=== PATIENT | female | born 1995 | race Caucasian/White ===

== ENCOUNTER 2017-01-10 17:47 | Emergency (ER) | payer OTHER ==
[2015-07-02 06:09] VITALS: BP 121/80
[~2017-01-10 17:47] MED LIST: ACET50TA PO; IBUP1TAB7 PO; VITAPRTA PO
== END 2017-01-10 18:31 | disposition left against medical advice (07) ==
LOC: M ED 17:47
DX: R68.89 Other general symptoms and signs (principal); Z53.29 Procedure and treatment not carried out because of patient's decision for other reasons

== ENCOUNTER → 2017-01-23 | Outpatient (REF) | payer OTHER | LOC: M LAB REF 09:27 | PROVIDERS: ATTEND Physician Assistant | DX: R30.0 Dysuria (principal) ==

== ENCOUNTER → 2017-02-25 | Outpatient (REF) | payer OTHER ==
[2017-02-25 16:32] LABS: BASO # 0.1 10^3/uL (0.0-0.2); BASO % 0.8 % (0.0-1.0); EOS # 0.4 10^3/uL (0.0-0.50); IMMATURE GRANULOCYTE % 0.1 % (0-0); LYMPH # 2.8 10^3/uL (1.5-6.5); LYMPH % 30.9 % (24.0-44.0); MEAN CORPUSCULAR HEMOGLOBIN 30.4 pg (27.0-33.0); MEAN CORPUSCULAR HGB CONC 33.3 g/dl (32.0-36.5); MEAN CORPUSCULAR VOLUME 91.2 fl (80.0-96.0); MONO # 0.7 10^3/uL (0.0-0.8); MONO % 7.8 % (0.0-5.0); NEUTROPHILS # 5.1 10^3/uL (1.8-7.7); NEUTROPHILS % 56.4 % (36.0-66.0); PLATELET COUNT, AUTOMATED 301 10^3/uL (150-450); RED CELL DISTRIBUTION WIDTH 12.5 % (11.5-14.5)
[2017-02-25 16:52] LABS: ALBUMIN 3.9 GM/DL (3.2-5.2); ALBUMIN/GLOBULIN RATIO 1.22 (1.00-1.93); ALKALINE PHOSPHATASE 79 U/L (45-117); ALT/SGPT 18 U/L (12-78); ANION GAP 10 MEQ/L (8-16); AST/SGOT 12 U/L (15-37); BILIRUBIN,TOTAL 0.3 MG/DL (0.2-1.0); BLOOD UREA NITROGEN 11 MG/DL (7-18); CALCIUM LEVEL 9.1 MG/DL (8.5-10.1); CARBON DIOXIDE LEVEL 26 MEQ/L (21-32); CHLORIDE LEVEL 104 MEQ/L (98-107); CHOLESTEROL LEVEL 157 MG/DL (<200); CREATININE FOR GFR 0.78 MG/DL (0.55-1.02); FREE T4 1.05 NG/DL (0.76-1.46); GLOMERULAR FILTRATION RATE > 60.0 (>60); POTASSIUM SERUM 4.7 MEQ/L (3.5-5.1); SODIUM LEVEL 140 MEQ/L (136-145); TOTAL PROTEIN 7.1 GM/DL (6.4-8.2); TRIGLYCERIDES LEVEL 63 MG/DL (<150)
[2017-03-01 09:04] LABS: GLUCOSE, FASTING 78 MG/DL (70-105); WHITE BLOOD COUNT 9.1 10^3/uL (4.0-10.0)
== END ==
LOC: M SFHCSACK 18:52 → M LAB REF 18:52
PROVIDERS: ATTEND Physician Assistant
DX: J30.9 Allergic rhinitis, unspecified (principal); Z13.220 Encounter for screening for lipoid disorders; E04.9 Nontoxic goiter, unspecified; Z13.21 Encounter for screening for nutritional disorder

== ENCOUNTER → 2017-06-29 | Outpatient (REF) | payer OTHER | LOC: M LAB REF 10:39 | DX: J11.1 Influenza due to unidentified influenza virus with other respiratory manifestations (principal) ==

== ENCOUNTER 2017-07-30 23:56 | Emergency (ER) | payer MEDICAID, OTHER ==
[2017-07-31] MEDS: IBUPROFEN 800 MG TAB PO ×2 (01:18)
== END 2017-07-31 01:41 | disposition home or self-care (01) ==
LOC: M ED 23:56
DX: S93.602A Unspecified sprain of left foot, initial encounter (principal); W01.0XXA Fall on same level from slipping, tripping and stumbling without subsequent striking against object, initial encounter; Y92.018 Other place in single-family (private) house as the place of occurrence of the external cause; Z88.0 Allergy status to penicillin
CPT/HCPCS: 73630

== ENCOUNTER → 2017-11-30 | Outpatient (REF) | payer OTHER ==
[2017-11-30 15:36] LABS: CONTROL LINE HCG INT CTR LINE PRESENT; HCG, SERUM QUALITATIVE NEGATIVE (NEGATIVE)
== END ==
LOC: M SFHCSACK 11:30
DX: R10.2 Pelvic and perineal pain (principal)

== ENCOUNTER → 2018-02-06 | Outpatient (REF) | payer OTHER | LOC: M SFHCSACK 15:22 | DX: J02.9 Acute pharyngitis, unspecified (principal) ==

== ENCOUNTER → 2018-02-20 | Outpatient (REF) | payer OTHER | LOC: M LAB REF 12:57 | DX: J02.9 Acute pharyngitis, unspecified (principal) ==

== ENCOUNTER → 2018-02-24 | Outpatient (CLI) | payer OTHER ==
[2018-02-24 11:07] LABS: BASO % 0.5 % (0.0-1.0); EOS # 0.1 10^3/uL (0.0-0.50); EOS % 1.6 % (0.0-3.0); HEMATOCRIT 37.2 % (36.0-47.0); HEMOGLOBIN 12.8 g/dl (12.0-15.5); IMMATURE GRANULOCYTE % 0.3 % (0-3.0); LYMPH # 1.5 10^3/uL (1.5-6.5); LYMPH % 17.4 % (24.0-44.0); MEAN CORPUSCULAR HEMOGLOBIN 31.1 pg (27.0-33.0); MEAN CORPUSCULAR HGB CONC 34.4 g/dl (32.0-36.5); MEAN CORPUSCULAR VOLUME 90.3 fl (80.0-96.0); MONO # 0.5 10^3/uL (0.0-0.8); MONO % 5.5 % (0.0-5.0); NEUTROPHILS # 6.5 10^3/uL (1.8-7.7); NEUTROPHILS % 74.7 % (36.0-66.0); PLATELET COUNT, AUTOMATED 307 10^3/uL (150-450); RED BLOOD COUNT 4.12 10^6/uL (4.00-5.40); RED CELL DISTRIBUTION WIDTH 12.6 % (11.5-14.5); WHITE BLOOD COUNT 8.8 10^3/uL (4.0-10.0)
[2018-02-24 11:39] LABS: ESTIMATED AVERAGE GLUCOSE 97 MG/DL (60-110)
[2018-02-24 12:38] LABS: FREE T4 1.08 NG/DL (0.76-1.46); GLUCOSE CHALLENGE TEST 1 HOUR 81 MG/DL (LESS THAN 140)
[2018-02-24 13:13] LABS: RUBELLA IgG QUALITATIVE IMMUNE (IMMUNE)
[2018-02-24 13:14] LABS: HBsAg Prenatal NEGATIVE (NEGATIVE)
[2018-02-24 13:41] LABS: HEPATITIS C VIRUS ABY INDEX < 0.0 INDEX (<0.8)
[2018-02-24 13:42] LABS: HIV 1&2 SCREEN CENTAUR NEGATIVE (NEGATIVE)
[2018-02-24 14:44] LABS: CHLAMYDIA DNA AMPLIFICATION NEGATIVE (NEGATIVE); GC DNA AMPLIFICATION NEGATIVE (NEGATIVE)
== END ==
LOC: M LAB 10:10
DX: Z34.81 Encounter for supervision of other normal pregnancy, first trimester (principal); Z3A.00 Weeks of gestation of pregnancy not specified
CPT/HCPCS: 82950

== ENCOUNTER → 2018-03-06 | Outpatient (REF) | payer OTHER | LOC: M SFHCSACK 11:16 | DX: J02.9 Acute pharyngitis, unspecified (principal) ==

== ENCOUNTER 2018-04-12 15:14 | Emergency (ER) | payer OTHER ==
[2018-04-12] MEDS: ACETAMINOPHEN 325 MG TAB PO (15:45)
[2018-04-12 16:15] LABS: KETONE, URINE AUTO RFX 1+ mg/dL (NEGATIVE); MUCUS, URINE RFX SMALL (NEGATIVE); NITRITE, URINE AUTO RFX NEGATIVE (NEGATIVE); RBC, URINE AUTO RFX 2 /HPF (0-3); SPECIFIC GRAVITY UR AUTO RFX 1.009 (1.002-1.035); SQUAM EPITHELIAL CELL UR AURFX 3 /HPF (0-6); WBC, URINE AUTO RFX 2 /HPF (0-3)
[2018-04-12 16:18] LABS: LEUKOCYTE ESTERASE UR AUTO RFX 1+ (NEGATIVE)
== END 2018-04-12 17:03 | disposition home or self-care (01) ==
LOC: M ED 15:14
DX: O26.892 Other specified pregnancy related conditions, second trimester (principal); R82.71 Bacteriuria; R10.31 Right lower quadrant pain; O9A.212 Injury, poisoning and certain other consequences of external causes complicating pregnancy, second trimester; R29.6 Repeated falls; Z87.891 Personal history of nicotine dependence; Z88.0 Allergy status to penicillin; Z3A.15 15 weeks gestation of pregnancy
CPT/HCPCS: 93976

== ENCOUNTER → 2018-05-03 | Outpatient (CLI) | payer OTHER ==
[~2018-05-03] MED LIST changes: -ACET50TA PO; +MACR100C43 PO; +MAPA500T17 PO
--- NOTE | 2018-05-03 17:37 | REP ---
Clinical: Anatomical evaluation. Comparison: 04/12/2018 . Findings: Examination demonstrates a single live intrauterine in transverse (head to maternal left) presentation. motion is identified by technologist. Placenta is noted anterior and grade zero without evidence for placenta previa or abruption. Amniotic fluid volume is normal. Cervix measures 3.9 cm in length and appears closed. Nuchal cord cannot be excluded. Gestational age by LMP 18 weeks 2 days LONG 10/02/2018 . Gestational age by current measurements 18 weeks 2 days with LONG 10/02/2018 . Normal cardiac activity noted by technologist. Estimated weight 234 grams ( 49th percentile). Anatomical assessment demonstrates normal structures including cranium, choroid plexus, cavum, cerebellum/posterior fossa, lungs, diaphragm, stomach, cord insertion/three-vessel cord, bladder, and extremities. Impression: Single live intrauterine in transverse lie demonstrating appropriate interval growth. Limited evaluation of the facial features, heart/ventricular outflow tracts, kidneys and spine noted. Remainder of the anatomical assessment is complete and normal. Nuchal cord cannot be excluded. Electronically Signed by Domingo Felix MD 05/03/2018 05:28 P
== END ==
LOC: M LAB 14:00
PROVIDERS: ATTEND Obstetrics & Gynecology
DX: Z34.82 Encounter for supervision of other normal pregnancy, second trimester (principal); Z3A.18 18 weeks gestation of pregnancy

== ENCOUNTER → 2018-06-01 | Outpatient (CLI) | payer OTHER ==
[~2018-06-01] MED LIST changes: -MAPA500T17 PO; +MAPA500T2 PO
--- NOTE | 2018-06-02 03:13 | REP ---
Clinical: Anatomical evaluation. Comparison: 05/03/2018 . Findings: Examination demonstrates a single live intrauterine in cephalic presentation. motion is identified by technologist. Placenta is noted anterior and grade grade zero without evidence for placenta previa or abruption. Amniotic fluid volume is normal. Cervix measures 4.6 cm in length and appears closed. No evidence for nuchal cord. Gestational age by LMP 22 weeks 3 days with LONG 10/02/1989 . Gestational age by current measurements 22 weeks 5 days with LONG 09/30/2018 . FHR equals 155 beats per minute. Estimated weight 565 grams ( 69th percentile). Anatomical assessment demonstrates normal structures including cranium, choroid plexus, cavum, cerebellum/posterior fossa, facial features, lungs, four-chamber heart/ventricular outflow tracts, diaphragm, stomach, cord insertion/three-vessel cord, kidneys/bladder, spine, and extremities. Impression: Single live intrauterine in cephalic presentation demonstrating appropriate interval growth. Anatomical assessment is complete and normal. No gross abnormalities are identified. Electronically Signed by Domingo Felix MD 06/02/2018 03:05 A
== END ==
LOC: M RAD 13:33
PROVIDERS: ATTEND Advanced Practice Midwife
DX: Z34.82 Encounter for supervision of other normal pregnancy, second trimester (principal); Z36.89 Encounter for other specified antenatal screening; Z3A.22 22 weeks gestation of pregnancy

== ENCOUNTER → 2018-07-11 | Outpatient (CLI) | payer OTHER ==
[2018-07-11 11:52] LABS: HEMATOCRIT 31.4 % (36.0-47.0); HEMOGLOBIN 10.5 g/dl (12.0-15.5); MEAN CORPUSCULAR HEMOGLOBIN 30.8 pg (27.0-33.0); MEAN CORPUSCULAR HGB CONC 33.4 g/dl (32.0-36.5); MEAN CORPUSCULAR VOLUME 92.1 fl (80.0-96.0); PLATELET COUNT, AUTOMATED 356 10^3/uL (150-450); RED BLOOD COUNT 3.41 10^6/uL (4.00-5.40)
== END ==
LOC: M LAB 09:53
PROVIDERS: ATTEND Obstetrics & Gynecology
DX: Z34.82 Encounter for supervision of other normal pregnancy, second trimester (principal)

== ENCOUNTER 2018-08-07 17:22 | Emergency (ER) | payer OTHER ==
[~2018-08-07] VITALS: Ht 160 cm; Wt 80.9 kg
[2018-08-07] MEDS ORDERED: VENTAER (17:28)
[2018-08-07] MEDS ORDERED: PROM25TA12 (17:28)
[2018-08-07] MEDS ORDERED: NS 1,000 ML IV ONE (18:45)
[2018-08-07] MEDS ORDERED: ONDANSETRON 4MG/2ML VIAL (J2405) IV ONE (18:45)
[2018-08-07] MEDS ORDERED: METOCLOPRAMIDE INJ 10MG/2ML VIAL (J2765) IV ONE (18:45)
[2018-08-07 19:24] LABS: BASO # 0.1 10^3/uL (0.0-0.2); BASO % 0.3 % (0.0-1.0); EOS # 0.1 10^3/uL (0.0-0.50); EOS % 0.3 % (0.0-3.0); HEMATOCRIT 33.4 % (36.0-47.0); HEMOGLOBIN 11.1 g/dl (12.0-15.5); LYMPH % 5.2 % (24.0-44.0); MEAN CORPUSCULAR HEMOGLOBIN 30.7 pg (27.0-33.0); MEAN CORPUSCULAR HGB CONC 33.2 g/dl (32.0-36.5); MEAN CORPUSCULAR VOLUME 92.5 fl (80.0-96.0); MONO # 0.7 10^3/uL (0.0-0.8); MONO % 3.7 % (0.0-5.0); NEUTROPHILS # 17.7 10^3/uL (1.8-7.7); NEUTROPHILS % 89.3 % (36.0-66.0); PLATELET COUNT, AUTOMATED 350 10^3/uL (150-450); RED BLOOD COUNT 3.61 10^6/uL (4.00-5.40); WHITE BLOOD COUNT 19.8 10^3/uL (4.0-10.0)
[2018-08-07 19:46] LABS: ALBUMIN 2.9 GM/DL (3.2-5.2); ALT/SGPT 10 U/L (12-78); BILIRUBIN,DIRECT < 0.1 MG/DL (0.0-0.2); BILIRUBIN,TOTAL 0.4 MG/DL (0.2-1.0); BLOOD UREA NITROGEN 6 MG/DL (7-18); CALCIUM LEVEL 8.9 MG/DL (8.5-10.1); CARBON DIOXIDE LEVEL 21 MEQ/L (21-32); CHLORIDE LEVEL 106 MEQ/L (98-107); CREATININE FOR GFR 0.58 MG/DL (0.55-1.30); GLOMERULAR FILTRATION RATE > 60.0 (>60); GLUCOSE, FASTING 70 MG/DL (70-100); LIPASE 126 U/L (73-393); POTASSIUM SERUM 3.7 MEQ/L (3.5-5.1); SODIUM LEVEL 138 MEQ/L (136-145)
[2018-08-07 20:27] VITALS: BP 116/63
== END 2018-08-07 20:47 | disposition home or self-care (01) ==
LOC: M ED 17:22
DX: O21.2 Late vomiting of pregnancy (principal); O99.613 Diseases of the digestive system complicating pregnancy, third trimester; R19.7 Diarrhea, unspecified; Z3A.32 32 weeks gestation of pregnancy; Z88.0 Allergy status to penicillin; Z79.899 Other long term (current) drug therapy
CPT/HCPCS: 80048; 80076; 83690; 85025; 96374; 96375; 99284; J2405; J2765

== ENCOUNTER → 2018-09-05 | Outpatient (REF) | payer OTHER ==
[~2018-09-05] MED LIST changes: +PROM25TA12; +VENTAER
== END ==
LOC: M LAB REF 18:32
PROVIDERS: ATTEND Advanced Practice Midwife
DX: Z34.83 Encounter for supervision of other normal pregnancy, third trimester (principal)

== ENCOUNTER → 2018-09-06 | Outpatient (REF) | payer OTHER | LOC: M LAB REF 12:50 | PROVIDERS: ATTEND Physician Assistant | DX: J02.9 Acute pharyngitis, unspecified (principal) ==

== ENCOUNTER → 2018-09-07 | Outpatient (REF) | payer OTHER ==
[2018-09-07 11:36] LABS: INFLUENZA A AMPLIFICATION POSITIVE (NEGATIVE); INFLUENZA B AMPLIFICATION NEGATIVE (NEGATIVE)
== END ==
LOC: M LAB REF 10:45
PROVIDERS: ATTEND Obstetrics & Gynecology
DX: R50.9 Fever, unspecified (principal); R05 Cough

== ENCOUNTER → 2018-09-19 | Outpatient (REF) | payer OTHER ==
[~2018-09-19] MED LIST changes: +TYLENOL PO
[2018-09-19 16:52] LABS: CREATININE,RANDOM URINE 20.1 MG/DL; TOTAL PROTEIN,RANDOM URINE 5.6 MG/DL (0.0-12.0)
[2018-09-19 16:56] LABS: HEMATOCRIT 31.1 % (36.0-47.0); HEMOGLOBIN 9.8 g/dl (12.0-15.5); MEAN CORPUSCULAR HEMOGLOBIN 28.2 pg (27.0-33.0); MEAN CORPUSCULAR HGB CONC 31.5 g/dl (32.0-36.5); MEAN CORPUSCULAR VOLUME 89.6 fl (80.0-96.0); PLATELET COUNT, AUTOMATED 364 10^3/uL (150-450); RED BLOOD COUNT 3.47 10^6/uL (4.00-5.40); WHITE BLOOD COUNT 14.7 10^3/uL (4.0-10.0)
[2018-09-19 17:01] LABS: ALT/SGPT 10 U/L (12-78); BILIRUBIN,TOTAL 0.3 MG/DL (0.2-1.0); CREATININE FOR GFR 0.59 MG/DL (0.55-1.30); GLOMERULAR FILTRATION RATE > 60.0 (>60); LDH LACTATE DEHYDROGENASE 191 U/L (84-246); URIC ACID 4.3 MG/DL (2.6-6.0)
== END ==
LOC: M LABDRAW1 12:01
PROVIDERS: ATTEND Advanced Practice Midwife
DX: O12.03 Gestational edema, third trimester (principal)

== ENCOUNTER 2018-09-20 16:55 | Inpatient (IN) | payer OTHER ==
[~2018-09-20] VITALS: Ht 160 cm; Wt 83.8 kg
[2018-09-20] VITALS (11 sets, daily range): BP systolic 133–143; BP diastolic 64–82
[~2018-09-20 16:55] MED LIST changes: -TYLENOL PO
[2018-09-20] MEDS ORDERED: TYLENOL PO (17:13)
[2018-09-20] MEDS: miSOPROStol 50 MCG 1/2 TAB (S0191) PO SCH ×2 (19:32→23:41)
[2018-09-20 19:48] LABS: HEMATOCRIT 30.4 % (36.0-47.0); HEMOGLOBIN 9.9 g/dl (12.0-15.5); MEAN CORPUSCULAR HEMOGLOBIN 29.3 pg (27.0-33.0); MEAN CORPUSCULAR HGB CONC 32.6 g/dl (32.0-36.5); MEAN CORPUSCULAR VOLUME 89.9 fl (80.0-96.0); PLATELET COUNT, AUTOMATED 361 10^3/uL (150-450); RED BLOOD COUNT 3.38 10^6/uL (4.00-5.40); WHITE BLOOD COUNT 17.8 10^3/uL (4.0-10.0)
[2018-09-20 19:55] LABS: ALT/SGPT 8 U/L (12-78); BILIRUBIN,TOTAL 0.3 MG/DL (0.2-1.0); GLOMERULAR FILTRATION RATE > 60.0 (>60); LDH LACTATE DEHYDROGENASE 200 U/L (84-246)
--- NOTE | 2018-09-20 21:58 | HPE ---
DATE OF ADMISSION: 09/20/2018 Matilda is a 23-year-old 3, para 1-0-1-1, 38 weeks gestation, EDC of 10/04/2018 based on last menstrual period and confirmed by first trimester ultrasound. She presents to labor and delivery today following routine appointment noted to have elevated blood pressure. She did have pre-eclamptic labs and a spot urine drawn yesterday. She denies any regular contractions, vaginal bleeding or leakage of fluid. The fetus has been active. She does report a slight headache that has improved throughout the day. Her care was initiated at [facility] in the first trimester. course complicated by today's diagnosis of gestational hypertension. PAST MEDICAL HISTORY: Childhood varicella asthma, seasonal allergies. SURGERIES: None. FAMILY HISTORY: Diabetes, heart disease, kidney disease, depression, anxiety, liver failure, thyroid dysfunction. SOCIAL HISTORY: The patient is single however the father of the baby is at bedside and supportive. She is a smoker. She has smoked throughout her . She denies alcohol and drug use. Denies history of sexually transmitted infections and denies history of abuse physical, sexual and emotional. ALLERGIES: AMOXICILLIN. CURRENT MEDICATIONS: - Zyrtec 10 mg - vitamin D - vitamins OBJECTIVE: Temperature 99.3, pulse 116, respirations 20, blood pressure is 143/82. She is alert and oriented times three, in no apparent discomfort. heart rate is 135 with moderate variability, positive accelerations, negative decelerations. Contractions are irregular. Sterile vaginal exam: 1 cm dilated, 80% effaced, -2 station, very posterior, moderate texture, no show. Her abdomen is gravid, cephalic presentation. Estimated weight 3700 grams. ASSESSMENT: Intrauterine 38 weeks. heart rate category one. Gestational hypertension. PLAN: Admit the patient to labor and delivery. Routine labs. Out of bed ad clifford. Repeat pre-eclamptic profile. Regular diet at this time. The patient desires an epidural when she is in active labor. I did review risks, benefits and alternatives. The patient and her partner have had all their questions answered. She has been verbally consented for emergency surgery and blood products. She does desire induction of labor at this time. I do anticipate labor.
[2018-09-21] VITALS (49 sets, daily range): BP systolic 100–153; BP diastolic 51–94
[2018-09-21] MEDS ORDERED: CALCIUM CARBONATE 500 MG CHEW U/D PO PRN (03:30)
[2018-09-21] MEDS ORDERED: OXYTOCIN 30 UNITS IN 0.9% NaCl 500ML IV BAG (J2590) As Ordered ONE (03:41)
[2018-09-21] MEDS ORDERED: OXYTOCIN DRIP 30 UNITS in APPROPRIATE DILUENT 1 EA IV SCH (03:45)
[2018-09-21] MEDS: LR 1,000 ML IV SCH ×3 (07:50→17:00)
[2018-09-21] MEDS ORDERED: FENTANYL 2MCG/ML ROPIVACAINE 0.2% IN 0.9% NACL 100ML IVBAG As Ordered ONE (12:55)
[2018-09-21 13:06] LABS: HEMATOCRIT 30.4 % (36.0-47.0); HEMOGLOBIN 10.1 g/dl (12.0-15.5); MEAN CORPUSCULAR HEMOGLOBIN 29.9 pg (27.0-33.0); MEAN CORPUSCULAR HGB CONC 33.2 g/dl (32.0-36.5); MEAN CORPUSCULAR VOLUME 89.9 fl (80.0-96.0); PLATELET COUNT, AUTOMATED 353 10^3/uL (150-450); RED BLOOD COUNT 3.38 10^6/uL (4.00-5.40); WHITE BLOOD COUNT 22.7 10^3/uL (4.0-10.0)
[2018-09-21] MEDS ORDERED: LR 1,000 ML IV ONE (13:15)
[2018-09-21] MEDS ORDERED: NALOXONE INJ 0.4 MG/1 ML VIAL (J2310) IV PRN (14:00)
[2018-09-21] MEDS ORDERED: ONDANSETRON 4MG/2ML VIAL (J2405) IV PRN ×2 (14:00→18:00)
[2018-09-21] MEDS ORDERED: REFRIGERATOR IV KEYS XX PRN (14:00)
[2018-09-21] MEDS ORDERED: ePHEDrine SULFATE 25 MG/5 ML(5MG/ML) SYRINGE IV PRN (14:00)
[2018-09-21] MEDS ORDERED: LACTATED RINGER'S 1000 ML IV PRN (14:00)
[2018-09-21] MEDS ORDERED: EPIDURAL COMMENT XX SCH (14:00)
[2018-09-21] MEDS ORDERED: EPIDURAL/PCA KEYS XX PRN (14:00)
[2018-09-21] MEDS ORDERED: FENTANYL/ROPIVACAINE/NACL BAG 100 ML EPIDURAL SCH (14:00)
[2018-09-21] MEDS ORDERED: diphenhydrAMINE INJ 50MG/ML VIAL (J1200) IV PRN (14:00)
[2018-09-21] MEDS ORDERED: DIBUCAINE 1% OINTMENT 30GM TOP PRN (18:00)
[2018-09-21] MEDS ORDERED: MEASLES,MUMPS,RUBELLA VACCINE INJ (MMR-II) (90707) SC SCH (18:00)
[2018-09-21] MEDS ORDERED: METHYLERGONOVINE MALEATE 0.2 MG TAB PO PRN (18:00)
[2018-09-21] MEDS ORDERED: OXYTOCIN DRIP 30 UNITS in APPROPRIATE DILUENT 1 EA IV ONE (18:00)
[2018-09-21] MEDS ORDERED: RHOGAM 300 MCG (1500 IU) INJ (J2790) IM SCH (18:00)
[2018-09-21] MEDS ORDERED: SLF 3 ML SYR IV PRN (18:45)
[2018-09-21] MEDS: SLF 3 ML SYR IV SCH ×2 (18:50→22:00)
[2018-09-21] MEDS: DOCUSATE SODIUM 100 MG CAP PO PRN (22:24)
[2018-09-21] MEDS: IBUPROFEN 800 MG TAB PO PRN (22:24)
[2018-09-22 06:00] VITALS: BP 126/67
[2018-09-22] MEDS: IBUPROFEN 800 MG TAB PO PRN (06:09)
[2018-09-22] MEDS: SLF 3 ML SYR IV SCH (06:09)
--- NOTE | 2018-09-22 08:35 | DN ---
DATE OF DELIVERY: 09/21/2018 PREDELIVERY DIAGNOSIS: 38 weeks gestational hypertension. POST DELIVERY DIAGNOSIS: Delivered. PROCEDURE: Spontaneous vaginal delivery. DOOR MANAGER: Ricardo Garcia M.D. ANESTHESIA: Epidural. ESTIMATED BLOOD LOSS: 300 mL. FINDINGS: 6 pound 7 ounce female infant. scores 8 and 9. DELIVERY SUMMARY: After a 15 minute second stage, the patient had spontaneous delivery of a 6 pound 7 ounce female scores 8 and 9 under epidural anesthesia. There is no nuchal cord. The shoulders delivered with ease. The infant was handed to the mother and cried immediately. The cord is doubly clamped and cut. The placenta delivered spontaneously and appeared to be intact. Patient received IV pitocin immediately after delivery of the placenta. There were no vaginal lacerations present. Sponges counts were correct.
[2018-09-22] MEDS: PRENATAL VITAMINS CHEWABLE TABLET PO SCH (09:00)
[2018-09-22 18:09] VITALS: BP 132/71
[2018-09-22] MEDS: ACETAMINOPHEN 500 MG TAB PO PRN (20:28)
[2018-09-22] MEDS: DOCUSATE SODIUM 100 MG CAP PO PRN (20:28)
[2018-09-23] MEDS: ACETAMINOPHEN 500 MG TAB PO PRN (04:30)
[2018-09-23 06:00] VITALS: BP 142/78
[2018-09-23] MEDS: PRENATAL VITAMINS CHEWABLE TABLET PO SCH (08:35)
== END 2018-09-23 12:10 | disposition home or self-care (01) | DRG 560 ==
LOC: M LDI 16:55 → M OBS 09-21 20:16
PROVIDERS: ADMIT Advanced Practice Midwife; ATTEND Specialist
PROC: 3E033VJ Introduction of Other Hormone into Peripheral Vein, Percutaneous Approach (ICD-10-PCS; 2018-09-20)
PROC: 10E0XZZ Delivery of Products of Conception, External Approach (ICD-10-PCS; principal; 2018-09-21)
DX: O13.4 Gestational [pregnancy-induced] hypertension without significant proteinuria, complicating childbirth (principal); F17.210 Nicotine dependence, cigarettes, uncomplicated; Z3A.38 38 weeks gestation of pregnancy; O99.334 Smoking (tobacco) complicating childbirth; Z37.0 Single live birth

== ENCOUNTER 2019-07-17 10:26 | Emergency (ER) | payer MEDICAID, OTHER, SELFPAY ==
[~2019-07-17] VITALS: Ht 160 cm; Wt 74.0 kg
[~2019-07-17 10:26] MED LIST changes: +TYLENOL PO
[2019-07-17] MEDS ORDERED: LORA-674 (10:32)
[2019-07-17] MEDS ORDERED: ADDE15CA3 (10:32)
[2019-07-17] MEDS ORDERED: MONT10TA4 (10:32)
[2019-07-17] MEDS ORDERED: KETOROLAC TROMETHAMINE 10 MG TAB PO ONE (11:15)
[2019-07-17] MEDS ORDERED: ONDANSETRON 4 MG ORAL DISINTEGRATING TAB (Q0162 PER 1MG) PO ONE (11:15)
[2019-07-17 11:51] LABS: INFLUENZA A AMPLIFICATION NEGATIVE (NEGATIVE); INFLUENZA B AMPLIFICATION NEGATIVE (NEGATIVE)
[2019-07-17 12:19] VITALS: BP 132/84
[2019-07-17] MEDS ORDERED: ONDA4TAB6 PO (12:20)
[2019-07-17] MEDS ORDERED: KETO10TAB PO (12:20)
== END 2019-07-17 12:33 | disposition home or self-care (01) ==
LOC: M ED 10:26
DX: R51 Headache (principal); J06.9 Acute upper respiratory infection, unspecified; J45.909 Unspecified asthma, uncomplicated; Z88.0 Allergy status to penicillin; F17.210 Nicotine dependence, cigarettes, uncomplicated
CPT/HCPCS: 87502; 99283; Q0162

== ENCOUNTER → 2019-11-19 | Outpatient (REF) | payer OTHER ==
[~2019-11-19] MED LIST changes: +ADDE15CA3; +KETO10TAB PO; +LORA-674; +MONT10TA4; +ONDA4TAB6 PO
[2019-11-19 15:37] LABS: HEMATOCRIT 38.8 % (36.0-47.0); MEAN CORPUSCULAR HEMOGLOBIN 30.5 pg (27.0-33.0); MEAN CORPUSCULAR HGB CONC 33.5 g/dl (32.0-36.5); MEAN CORPUSCULAR VOLUME 91.1 fl (80.0-96.0); PLATELET COUNT, AUTOMATED 332 10^3/uL (150-450); RED BLOOD COUNT 4.26 10^6/uL (4.00-5.40); WHITE BLOOD COUNT 15.2 10^3/uL (4.0-10.0)
[2019-11-19 16:35] LABS: ALT/SGPT 15 U/L (12-78); BILIRUBIN,TOTAL 0.1 MG/DL (0.2-1.0); CREATININE FOR GFR 0.63 MG/DL (0.55-1.30); GLOMERULAR FILTRATION RATE > 60.0 (>60); LDH LACTATE DEHYDROGENASE 151 U/L (84-246); URIC ACID 3.5 MG/DL (2.6-6.0)
[2019-11-19 17:20] LABS: HIV 1&2 SCREEN CENTAUR NEGATIVE (NEGATIVE)
[2019-11-19 17:32] LABS: CHLAMYDIA DNA AMPLIFICATION NEGATIVE (NEGATIVE); GC DNA AMPLIFICATION NEGATIVE (NEGATIVE)
[2019-11-21 10:25] LABS: HEPATITIS C VIRUS ABY INDEX 0.1 INDEX (<0.8)
== END ==
LOC: M PLALAB 13:35
PROVIDERS: ATTEND Advanced Practice Midwife
DX: Z34.91 Encounter for supervision of normal pregnancy, unspecified, first trimester (principal)

== ENCOUNTER 2020-01-03 14:18 | Emergency (ER) | payer OTHER ==
[~2020-01-03] VITALS: Ht 160 cm; Wt 76.6 kg
[2020-01-03 16:21] LABS: BASO % 0.2 % (0.0-1.0); EOS # 0.4 10^3/uL (0.0-0.5); EOS % 2.6 % (0.0-3.0); HEMATOCRIT 39.1 % (36.0-47.0); HEMOGLOBIN 13.2 g/dl (12.0-15.5); LYMPH # 2.6 10^3/uL (1.5-5.0); LYMPH % 17.5 % (24.0-44.0); MEAN CORPUSCULAR HEMOGLOBIN 30.8 pg (27.0-33.0); MEAN CORPUSCULAR HGB CONC 33.8 g/dl (32.0-36.5); MEAN CORPUSCULAR VOLUME 91.4 fl (80.0-96.0); MONO # 0.9 10^3/uL (0.0-0.8); MONO % 5.9 % (0.0-5.0); NEUTROPHILS # 10.9 10^3/uL (1.5-8.5); NEUTROPHILS % 73.2 % (36.0-66.0); PLATELET COUNT, AUTOMATED 319 10^3/uL (150-450); RED BLOOD COUNT 4.28 10^6/uL (4.00-5.40)
[2020-01-03 16:27] LABS: APPEARANCE, URINE CLEAR (CLEAR); BACTERIA, URINE AUTO 1+ (NEGATIVE); BILIRUBIN, URINE AUTO NEGATIVE (NEGATIVE); BLOOD, URINE BLOOD NEGATIVE (NEGATIVE); COLOR, URINE YELLOW (YELLOW); GLUCOSE, URINE (UA) AUTO NEGATIVE (NEGATIVE); KETONE, URINE AUTO 1+ mg/dL (NEGATIVE); LEUKOCYTE ESTERASE, URINE AUTO NEGATIVE (NEGATIVE); MUCUS, URINE SMALL (NEGATIVE); NITRITE, URINE AUTO NEGATIVE (NEGATIVE); PROTEIN, URINE AUTO NEGATIVE (NEGATIVE); RBC, URINE AUTO 0 /HPF (0-3); SPECIFIC GRAVITY URINE AUTO 1.021 (1.002-1.035); SQUAMOUS EPITHELIAL CELL UR AU 1 /HPF (0-6); UROBILINOGEN, URINE AUTO 0.2 mg/dL (0.0-2.0); WBC, URINE AUTO 1 /HPF (0-3)
[2020-01-03 16:30] LABS: ALBUMIN 3.5 GM/DL (3.2-5.2); ALT/SGPT 11 U/L (12-78); BILIRUBIN,DIRECT < 0.1 MG/DL (0.0-0.2); BILIRUBIN,TOTAL 0.2 MG/DL (0.2-1.0); BLOOD UREA NITROGEN 7 MG/DL (7-18); CALCIUM LEVEL 10.4 MG/DL (8.5-10.1); CARBON DIOXIDE LEVEL 27 MEQ/L (21-32); CHLORIDE LEVEL 107 MEQ/L (98-107); CREATININE FOR GFR 0.58 MG/DL (0.55-1.30); GLOMERULAR FILTRATION RATE > 60.0 (>60); GLUCOSE, FASTING 75 MG/DL (70-100); LIPASE 109 U/L (73-393); POTASSIUM SERUM 4.2 MEQ/L (3.5-5.1); SODIUM LEVEL 136 MEQ/L (136-145); TOTAL PROTEIN 7.4 GM/DL (6.4-8.2)
[2020-01-03 17:43] LABS: HCG, SERUM QUANTITATIVE 21635 MIU/ML
--- NOTE | 2020-01-03 18:07 | REPVR ---
PROCEDURE INFORMATION: Exam: US , Limited Exam date and time: 01/03/2020 5:56 PM Age: 24 years old Clinical indication: complicated by abdominal or pelvic pain; Lower; Second trimester; Gestational age or lmp: 17 weeks 4 days; ; Additional info: Lower abd pain TECHNIQUE: Imaging protocol: Real-time ultrasound of the maternal uterus with image documentation. Exam focused on the clinical indication. COMPARISON: US OBS FOLL UP OR REPEAT EACH GES 06/01/2018 2:01 PM FINDINGS: Gestation: Intrauterine gestation. heart rate: heart rate 152 bpm. Placenta: Anterior low-lying placenta without evidence of previa. Amniotic fluid: Amniotic fluid volume within normal limits. BIOMETRY: Gestational age (AUA): Gestational age based on LMP of 09/02/2019 is 17 weeks 4 days. LONG is 04/08/2021. MATERNAL: Cervix: Cervix measures 3.5 cm. No bulging membranes or funneling. Other findings: Ovaries unremarkable. IMPRESSION: Single fetus. Gestational age is 17 weeks 4 days based on clinical dates. Unremarkable appearance of the cervix. No evidence of placenta previa with anterior low-lying placenta. Electronically signed by: Joseph Lopez On 01/03/2020 18:08:02 PM
[2020-01-03 18:28] VITALS: BP 135/69
== END 2020-01-03 18:44 | disposition home or self-care (01) ==
LOC: M ED 14:18
DX: O26.892 Other specified pregnancy related conditions, second trimester (principal); R10.30 Lower abdominal pain, unspecified; Z3A.17 17 weeks gestation of pregnancy; O99.512 Diseases of the respiratory system complicating pregnancy, second trimester; J45.909 Unspecified asthma, uncomplicated; O99.332 Smoking (tobacco) complicating pregnancy, second trimester; F17.210 Nicotine dependence, cigarettes, uncomplicated; Z88.0 Allergy status to penicillin; Z85.3 Personal history of malignant neoplasm of breast

== ENCOUNTER → 2020-01-22 | Outpatient (CLI) | payer OTHER ==
--- NOTE | 2020-02-12 12:53 | REP ---
COMPLETE OBSTETRICAL ULTRASOUND DATE: 01/22/2020 at 01:35 p.m. COMPARISON: 01/03/2020. TECHNIQUE: Transabdominal obstetrical ultrasound with color Doppler evaluation FINDINGS: Ultrasound examination demonstrates single live intrauterine in breech presentation. Placenta noted anteriorly and grade 0, without evidence for placenta previa or abruption. Amniotic fluid volume is normal. Cervix measures 3.9 cm in length and appears closed. Complex cystic structures in the left maternal ovary are nonspecific and likely physiologic measuring 1.7 cm and 1.5 cm maximal diameter each. heart rate: 145 beats per minute. BPD: 44 mm; 19 weeks, 2 days. HC: 167 mm; 19 weeks, 3 days. AC: 154 mm; 20 weeks, 4 days. FL: 31 mm; 19 weeks, 4 days. HL: 29 mm; 19 weeks, 4 days. Estimated age by current measurements: 19 weeks, 5 days; with estimated date of delivery 06/12/2020. Estimated weight: 324 grams; 48th percentile. Anatomical assessment demonstrates normal cisterna magna, cavum, thalamus, stomach, kidneys/bladder, four chamber heart, three-vessel cord/cord insertion, facial features, and extremities. Limited evaluation of the spine and cardiac ventricular outflow tracts noted. IMPRESSION: * Single live intrauterine in breech presentation demonstrating appropriate estimated weight and growth. * Limited evaluation of the cardiac ventricular outflow tracts and spine may warrant followup. * The remainder of the anatomical assessment is complete and normal. MTDD
== END ==
LOC: M RAD 13:03
PROVIDERS: ATTEND Advanced Practice Midwife
DX: Z36.89 Encounter for other specified antenatal screening (principal); Z3A.19 19 weeks gestation of pregnancy

== ENCOUNTER → 2020-02-22 | Outpatient (CLI) | payer OTHER ==
--- NOTE | 2020-02-27 08:40 | REP ---
OB ULTRASOUND HISTORY: Follow anatomy. TECHNIQUE: Real-time sonographic evaluation of the gravid uterus is performed. FINDINGS: There is a single living intrauterine gestation. The estimated gestational age is 24 weeks 5 days, estimated date of confinement (EDC) 06/08/2020. Todays measurements indicate appropriate growth. BIOMETRY AND GROWTH TABLE: BPD 60 mm 24 weeks 2 days 42nd percentile HC 228 mm 24 weeks 6 days 53rd percentile AC 202 mm 24 weeks 5 days 52nd percentile Femur length 44 mm 24 weeks 2 days 42nd percentile AC/HC ratio 1.13 Normal 1.02 to 1.21 Estimated weight 712 grams 50th percentile position is breech. Placenta is anterior and grade 0 with no previa or abruption. heart rate is 136 beats per minute. Amniotic fluid appears within normal limits for gestational age. Cervix is closed and measures 3.5 cm in length. Visualized anatomy today includes lateral ventricles, posterior fossa, upper lip, four chamber heart, ventricular outflow tracts, stomach, kidneys, three-vessel cord, bladder, and cord insertion, which were all grossly unremarkable. Transverse views of the spine appear unremarkable. Sagittal views could not be obtained due to position. Simple cystic structure in the left ovary measures 1.3 cm in diameter and there is another complex cystic area 1.1 cm in diameter. There is normal blood flow to the left ovary with duplex Doppler evaluation. Resistive index 0.53. MTDD
== END ==
LOC: M RAD 09:37
PROVIDERS: ATTEND Advanced Practice Midwife
DX: O32.1XX0 Maternal care for breech presentation, not applicable or unspecified (principal); Z3A.24 24 weeks gestation of pregnancy

== ENCOUNTER → 2020-03-06 | Outpatient (CLI) | payer OTHER ==
[2020-03-06 11:16] LABS: HEMATOCRIT 34.6 % (36.0-47.0); HEMOGLOBIN 11.2 g/dl (12.0-15.5); MEAN CORPUSCULAR HEMOGLOBIN 30.3 pg (27.0-33.0); MEAN CORPUSCULAR HGB CONC 32.4 g/dl (32.0-36.5); MEAN CORPUSCULAR VOLUME 93.5 fl (80.0-96.0); PLATELET COUNT, AUTOMATED 317 10^3/uL (150-450); WHITE BLOOD COUNT 15.3 10^3/uL (4.0-10.0)
[2020-03-06 11:48] LABS: ALT/SGPT 8 U/L (12-78); BILIRUBIN,TOTAL 0.1 MG/DL (0.2-1.0); CREATININE FOR GFR 0.52 MG/DL (0.55-1.30); GLOMERULAR FILTRATION RATE > 60.0 (>60); GLUCOSE CHALLENGE TEST 1 HOUR 99 MG/DL (LESS THAN 140); LDH LACTATE DEHYDROGENASE 146 U/L (84-246); URIC ACID 3.3 MG/DL (2.6-6.0)
[2020-03-06 12:03] LABS: CREATININE,RANDOM URINE 64.2 MG/DL; TOTAL PROTEIN,RANDOM URINE 12.6 MG/DL (0.0-12.0)
== END ==
LOC: M LAB 09:28
PROVIDERS: ATTEND Advanced Practice Midwife
DX: Z34.82 Encounter for supervision of other normal pregnancy, second trimester (principal); Z3A.00 Weeks of gestation of pregnancy not specified

== ENCOUNTER → 2020-04-01 | Outpatient (CLI) | payer OTHER ==
--- NOTE | 2020-04-02 03:43 | REP ---
INDICATION: ANATOMY 32 WEEKS, LOOKING FOR SPINE COMPARISON: 02/22/2020 TECHNIQUE: Transabdominal obstetrical ultrasound with color Doppler evaluation. FINDINGS: Examination demonstrates a single live intrauterine in cephalic presentation. motion is identified by technologist. Placenta is noted anterior and grade 1 without evidence for placenta previa or abruption. Amniotic fluid volume is normal. Cervix measures 3.1 cm in length and appears closed.. Gestational age by LMP 30 weeks 2 days with LONG 06/08/2020. Gestational age by current measurements 29 weeks 6 days with LONG 06/11/2020. FHR equals 144 beats per minute. Umbilical artery SD ratio: 3.66 BUFFY: 13.9 cm Estimated weight 1492 grams (48thpercentile). Anatomical assessment demonstrates normal structures including cranium, choroid plexus, cavum, cerebellum/posterior fossa, lungs, diaphragm, stomach, cord insertion/three-vessel cord, kidneys/bladder, and spine. IMPRESSION: Single live advanced gestation in cephalic presentation demonstrating appropriate estimated weight. Current examination demonstrates normal anatomical structures including spine. <Electronically signed by Domingo Felix > 04/02/20 [id number]
== END ==
LOC: M RAD 14:55
PROVIDERS: ATTEND Obstetrics & Gynecology
DX: O99.332 Smoking (tobacco) complicating pregnancy, second trimester (principal); F17.200 Nicotine dependence, unspecified, uncomplicated; Z3A.29 29 weeks gestation of pregnancy

== ENCOUNTER → 2020-05-12 | Outpatient (REF) | payer OTHER ==
[~2020-05-12] MED LIST changes: -MONT10TA4; +MONT5TAB2
== END ==
LOC: M SFHCWAGY 16:51
PROVIDERS: ATTEND Obstetrics & Gynecology
DX: O99.333 Smoking (tobacco) complicating pregnancy, third trimester (principal); Z3A.00 Weeks of gestation of pregnancy not specified

== ENCOUNTER 2020-05-16 00:18 | Outpatient (CLI) | payer OTHER ==
[~2020-05-16] VITALS: Ht 160 cm; Wt 78.7 kg
[2020-05-16] VITALS (12 sets, daily range): BP systolic 102–154; BP diastolic 55–74
[2020-05-16] MEDS: LR 1,000 ML IV SCH ×2 (03:52→12:58)
[2020-05-16] MEDS ORDERED: PROMETHAZINE INJ 25 MG/ML VIAL (J2550) IV ONE (04:00)
[2020-05-16] MEDS ORDERED: BUTORPHANOL 2 MG/ML INJ (J0595) IV ONE (04:00)
--- NOTE | 2020-05-16 07:12 | HPEPDOC ---
Obstetrical History & Physical General Date of Admission May 16 2020 History of Present Illness 24 yo female at 36 5/7 weeks gestation by LMP c/w 10 week ultrasound (EDC=06/08/2020) presents with contractions or several hours that increased. She has low back pain. She started to have vaginal bleeding. Information Provided By: Patient Age: 24 : 3 Term: 2 Care Care: Good Care Dating Final EDC: Jun 08, 2020 Final EDC by: LMP, 1st trimester (US) Past Medical History Past Obstetrical History : Past Obstetrical History: Multigravida Past Medical History Medical History OB hx: TSVD x 2 medicla hx: None surgical hx: tooth extraction Social History Family situation: Spouse/partner home Allergies Coded Allergies: amoxicillin (Verified Allergy, Mild, VOMITING, 09/20/18) Medications Scheduled PRN [Tylenol] , 1,000 MG PO for HEADACHE OR PAIN Miscellaneous Medications Loratadine (Loratadine) 10 Mg Tablet Montelukast Sodium (Montelukast Sodium) 10 Mg Tablet Physical Examination Physical Examination GENERAL: Alert and oriented times three. BREAST: . ABDOMEN: Gravid and non-tender to touch. FETUS: Is vertex (VTX) by sterile vaginal examination (SVE), fetus is vertex (VTX) by Shiraz. HEART RATE: Regular rate and rhythm. LUNGS: Clear to auscultation (CTA). EXTREMITIES: No edema. No clonus. Deep tendon reflexes (DTRs) + . Vital Signs/I&O Vital Signs Date Time Temp Pulse Resp B/P (MAP) Pulse Ox O2 Delivery O2 Flow Rate FiO2 05/16/20 04:52 75 111/71 (84) 05/16/20 01:05 98.1 18 Room Air Vaginal Examination Dilation: 1cm Effacement: 50% Station: -3 Presentation: Cephalic presentation Assessment Variability: Moderate Accelerations: Positive Decelerations: None Tocometer Contractions: Yes Frequency: regular, every 1-3 min. Strength: palpated as moderate Assessment/Plan Assessment Pt is a 24-year-old (G)3 para (P)2 at 36 +5 weeks by 10-week ultrasound c/w LMP Presents to Labor and delivery with contractions. Plan Plan to observe and give therapeutic rest Administer IV fluids Monitor bleeding--could be bloody show, but have to consider possibility of placental abruption AIDEN GUO MD May 16, 2020 07:12
--- NOTE | 2020-05-16 11:15 | IPNPDOC ---
Text Note Date of Service The patient was seen on 05/16/20. NOTE Subjective: Matilda is a 24-year-old female who presented to L&D last night with complaints of vaginal bleeding. She reported passing a few blood clots. She currently denies vaginal bleeding. She was given Stadol and Phenergan to help with sleep and therapeutic rest this morning and she was able to sleep and her contractions decreased. She reports active movement. She denies leaking of fluid. Denies any current bright red vaginal bleeding. She does report some intermittent back pain. Objective: VS: see below. FHR 130, moderate variability, positive accelerations, no decelerations. Contractions: occasional. A+O x3. Respiratory rate is regular with no use of accessory muscles. Abdomen soft and non tender to touch. No bleeding noted on pad. Assessment: IUP at 36.5 weeks gestation, observation for possible abruption, Category I FHR tracing Plan: Reviewed case with Dr. Dawson. He recommends betamethasone IM now and again in 24 hours. Ordered. US ordered to help rule out abruption. Abruption labs also ordered. Will continue to observe and keep for 24 hours. Reviewed plan with patient and significant other. Agreeable to plan. VS,Fishbone, I+O VS, Devbone, I+O Vital Signs Date Time Temp Pulse Resp B/P (MAP) Pulse Ox O2 Delivery O2 Flow Rate FiO2 05/16/20 10:35 75 18 102/59 (73) 05/16/20 07:33 97.8 05/16/20 01:05 Room Air ESMER GONZALEZ CNM May 16, 2020 11:15
[2020-05-16 11:48] LABS: HEMATOCRIT 30.3 % (36.0-47.0); HEMOGLOBIN 10.1 g/dl (12.0-15.5); MEAN CORPUSCULAR HEMOGLOBIN 30.7 pg (27.0-33.0); MEAN CORPUSCULAR HGB CONC 33.3 g/dl (32.0-36.5); MEAN CORPUSCULAR VOLUME 92.1 fl (80.0-96.0); PLATELET COUNT, AUTOMATED 326 10^3/uL (150-450); RED BLOOD COUNT 3.29 10^6/uL (4.00-5.40)
[2020-05-16 11:59] LABS: INR 0.95; PROTHROMBIN TIME 12.9 SECONDS (12.5-14.3)
[2020-05-16] MEDS ORDERED: BETAMETHASONE SOLUSPAN 6MG/ML 5ML VIAL (J0702 PER 3MG) IM SCH (12:00)
--- NOTE | 2020-05-16 12:35 | REP ---
INDICATION: vaginal bleeding COMPARISON: 04/01/2020 TECHNIQUE: Transabdominal obstetrical ultrasound with color Doppler evaluation. FINDINGS: Examination demonstrates a single live intrauterine in cephalic presentation. motion is identified by technologist. Placenta is noted anterior and grade 1 without evidence for placenta previa or abruption. Amniotic fluid volume is normal. Cervix measures 4.1 cm in length and appears closed.. Gestational age by LMP 36 weeks 5 days with LONG 06/08/2020. FHR equals 136 beats per minute. BUFFY: 17.8 cm (7.6-24.6). Umbilical artery SD ratio: 2.74 (1.61-3.45) IMPRESSION: Single live advanced gestation in cephalic presentation. Anterior placenta without evidence for placenta previa. Amniotic fluid volume is normal. Cervix appears closed. <Electronically signed by Domingo Felix > 05/16/20 [id number]
[2020-05-16] MEDS ORDERED: ACETAMINOPHEN 500 MG TAB PO PRN (19:00)
--- NOTE | 2020-05-16 22:03 | IPNPDOC ---
Text Note Date of Service The patient was seen on 05/16/20. NOTE Subjective: Matilda desires to be discharged. She was being observed for a pot ential for placental abruption due to having vaginal bleeding yesterday. Since she has been in the hospital the nurses have not visualized any blood on her pads. She had what was described by Dr. Garcia as bloody show when he did his exam. She reports active movement. She denies bright red vaginal bleeding- reports scant amount of dark brown only when she wipes. She denies any contractions and reports the back pain she was having is now gone. She denies any cramping. She reports good movement. She reports she does not want her next dose of betamethasone because she said it hurt too much. Objective: VS, labs, and ultrasound: see below. FHR 120, moderate variability, positive accelerations, no decelerations. Contractions: occasional. A+O x3; Respiratory: regular rate with no use of accessory muscles. No spotting or bleeding noted on pads. Abdomen is soft and she denies tenderness with palpation. Assessment: IUP at 36.5, not in active labor, no abruption-no bright red vaginal bleeding Plan: Reviewed US, labs and all findings with Dr. Dawson. He agrees that the patient can be discharged if she is adamant about leaving especially with no symptoms. Patient reports she [place] 2 [address] from the hospital and can get back quickly if necessary. Saline lock to be removed. Extensive education done on signs of abruption, movement, signs of labor, and other dangers to she needs to report. She is to come back into the hospital if anything changes. She is to follow-up for routine OB care-her next appointment is on 05/22/20. Discharged to home. VS,Devbone, I+O VS, Fishbone, I+O Laboratory Tests 05/16/20 11:34 Item Value Date Time Prothrombin Time 12.9 SECONDS 05/16/20 1134 Prothromb Time International Ratio 0.95 05/16/20 1134 Fibrinogen 616 MG/DL H 05/16/20 1134 Vital Signs Date Time Temp Pulse Resp B/P (MAP) Pulse Ox O2 Delivery O2 Flow Rate FiO2 05/16/20 15:57 97.0 95 18 126/70 (88) 05/16/20 01:05 Room Air NAME: MATILDA ROWLAND DATE OF : 1995 AGE: 24 SEX: F REPORT #: [id number] [facility]: [facility] TECHNOLOGIST: [facility] DOCTOR: ESMER GONZALEZ CNM Ordered for Date&Time: 05/16/20 1109 cc: [~ rep ct ivnm] Service Date&Time: 05/16/20 1121 EXAMINATION REQUESTED: Obs. Limited, BUFFY US REASON FOR PATIENT VISIT: LABOR CHECK REASON FOR EXAM/COMMENT: vaginal bleeding INDICATION: vaginal bleeding COMPARISON: 04/01/2020 TECHNIQUE: Transabdominal obstetrical ultrasound with color Doppler evaluation. FINDINGS: Examination demonstrates a single live intrauterine in cephalic presentation. motion is identified by technologist. Placenta is noted anterior and grade 1 without evidence for placenta previa or abruption. Amniotic fluid volume is normal. Cervix measures 4.1 cm in length and appears closed.. Gestational age by LMP 36 weeks 5 days with LONG 06/08/2020. FHR equals 136 beats per minute. BUFFY: 17.8 cm (7.6-24.6). Umbilical artery SD ratio: 2.74 (1.61-3.45) IMPRESSION: Single live advanced gestation in cephalic presentation. Anterior placenta without evidence for placenta previa. Amniotic fluid volume is normal. Cervix appears closed. <Electronically signed by Domingo Felix > 05/16/20 1231 ESMER GONZALEZ CNM May 16, 2020 22:03
== END 2020-05-16 21:30 | disposition home or self-care (01) ==
LOC: M LDO 00:18
PROVIDERS: ATTEND Specialist
DX: O26.853 Spotting complicating pregnancy, third trimester (principal); Z3A.36 36 weeks gestation of pregnancy; Z88.1 Allergy status to other antibiotic agents
CPT/HCPCS: 36415; 59025; 76815; 76820; 85027; 85384; 85610; 86850; 86900; 86901; 87086; J0595; J0702

== ENCOUNTER 2020-06-02 07:02 | Inpatient (IN) | payer OTHER ==
[~2020-06-02] VITALS: Ht 160 cm; Wt 80.1 kg
[2020-06-02] VITALS (19 sets, daily range): BP systolic 110–146; BP diastolic 57–82
[~2020-06-02 07:02] MED LIST changes: +MONT10TA10; -MONT5TAB2
--- OUTSIDE RECORDS SUMMARY | 2020-06-02 07:05 | CCD ---
Author Author [facility] Organization [facility] Address Unknown Phone Unavailable Care Team Providers Care Qa Auditor Name Role Phone ManishSonya Unavailable PROBLEMS Type Condition ICD9-CM Code [id number] Code Onset Dates Condition S tatus SNOMED Code Notes Problem ADD (attention deficit disorder) F90.0 Active 906558278 Problem Allergic rhinitis J30.9 Active 05526795 Problem Tobacco abuse Z72.0 Active 53146686 Problem Supervision of other normal Z34.80 Ac tive 313968785 Problem Goiter E04.9 Active 4851618 Problem Cigarette nicotine dependence without complication F17.210 Active 30303641 Problem Asthma J45.909 Active 617463924 Problem Vitamin D deficiency E55.9 Active 61048321 Problem Missed menses N92.6 Active 42639665 Problem Anxiety F41.9 Active 77141043 ALLERGIES Allergen (clinical drug ingredient) Drug/Non Drug Allergy do cumented on EMR Reaction Allergy Type Onset Date Status amoxicillin Amoxicillin([facility] Code:[address]-04) Nausea/Vomiting Drug Allergy Active ENCOUNTERS from 1993 to 2020-04-02 Encounter Location Date Provider Diagnosis [facility] [address] [place] [address] Feb, Sonya Hammond Smoking (tobacco) co mplicating , second trimester O99.332 ; Cigarette nicotine dependence without complication F17.210 ; 27 weeks gestation of Z3A.27 ; Abdominal pain during pregna ncy in second trimester O26.892 and Back ache M54.9 IMMUNIZATIONS Vaccine Route Administration Date Status Gardasil Unknown July 26, 2007 Administered Gardasil Unknown Mar 25, 2008 Administered Varicella 0.5mL (VariVax) Unknown Mar 11, 2006 Admini stered Varicella 0.5mL (VariVax) Unknown May 25, 2007 Admini stered Hepatitis B Ped & Adol 0.5mL (Engerix-B) Unknown August Administered Hepatitis B Ped & Adol 0.5mL (Engerix-B) Unknown Apr 16, 1994 Administered TDAP 0.5mL (Boostrix) Unknown Jan 27, 2005 Administer ed Gardasil Unknown Jan 20, 2007 Administered DTAP 0.5mL (Infanrix) Unknown 1993 Administer ed TDAP 0.5mL (Boostrix) IM Intramuscular Apr 02, 2020 Administe red Hepatitis A Ped & Adol 0.5mL (Havrix) Unknown Mar 11 06 Administered MMR 0.5mL Unknown August 20, 1998 Administered MMR 0.5mL Unknown October 06, 1994 Administered HIB 0.5mL Unknown 1993 Administered DTAP 0.5mL (Infanrix) Unknown August 20, 1998 Administer ed DTAP 0.5mL (Infanrix) Unknown October 06, 1994 Administer ed DTAP 0.5mL (Infanrix) Unknown Feb 02, 1994 Administer ed DTAP 0.5mL (Infanrix) Unknown 1993 Administer ed IPV 0.5mL (Polio) Unknown Jan 20, 1995 Administered IPV 0.5mL (Polio) Unknown August 20, 1998 Administered HIB 0.5mL Unknown 1993 Administered HIB 0.5mL Unknown Feb 02, 1994 Administered Hepatitis A Ped & Adol 0.5mL (Havrix) Unknown Jan 20 007 Administered IPV 0.5mL (Polio) Unknown 1993 Administered IPV 0.5mL (Polio) Unknown 1993 Administered HIB 0.5mL Unknown October 06, 1994 Administered Influenza (6mo & up) Fluzone Unknown Jun 23, 2016 Ref used Hepatitis B Ped & Adol 0.5mL (Engerix-B) Unknown July Administered SOCIAL HISTORY Tobacco Use: Social History Observation Description Date Details (start date - stop date) Current Smoker Sex Assigned At : Social History Observation Description Sex Assigned At Unknown Education: Question Answer Notes Level of Education: Finished High School Language: Question Answer Notes Languages spoken: Swiss Zoroastrian: Question Answer Notes Zoroastrian 33 None Domestic Violence: Question Answer Notes Status: denies 01/2018 Sexual Hx: Question Answer Notes Had sex in the last 12 months (vaginal, oral, or anal)? Yes LMP: 04/29/17 Have you ever had an STD? No with Men only Use protection? No Alcohol Screening: Question Answer Notes Did you have a drink containing alcohol in the past year? No Points 0 Interpretation Negative Tobacco Use: Question Answer Notes Are you a: current smoker Patient counseled on the dangers of tobacco use and urged to quit: 11/13/2019 How many cigarettes a day do you smoke? 5 or less Are you interested in quitting? Not ready to quit Counseled the patient on smoking effects, education provided 11/13/2019 REASON FOR REFERRAL No Information VITAL SIGNS Weight 175.6 lbs Feb, Height 63.5 in Feb, BMI 30.61 kg/m2 Feb, Blood pressure systolic 120 mm Hg Feb, Blood pressure diastolic 70 mm Hg Feb, MEDICATIONS Medication SIG (Take, Route, Frequency, Duration) Notes Start Da te End Date Status Loratadine 10 MG 1 tablet Orally Once a day Active Flintstones Complete Acti ve PROCEDURES No Information RESULTS No Results REASON FOR VISIT 4WK PN MEDICAL (GENERAL) HISTORY Type Description Date Medical History headaches Medical History back pain Medical History smoking Medical History asthma Medical History ADD Medical History allergic rhinitis Medical History Vitamin D Deficiency Surgical History tooth extraction Hospitalization History flu 2001 Hospitalization History Childbirth 06/2015 [place] No Information Health Concerns No Information MEDICAL EQUIPMENT No Information MENTAL STATUS No Information FUNCTIONAL STATUS No Information ASSESSMENTS Encounter Date Diagnosis Assessment Notes Treatment Notes Treatm ent Clinical Notes Feb, Smoking (tobacco) complicati ng , second trimester (ICD-10 - O99.332) Feb, Cigarette nicotine dependenc e without complication (ICD-10 - F17.210) Feb, 27 weeks gestation of (ICD-10 - Z3A.27 ) Feb, Abdominal pain during pregna ncy in second trimester (ICD-10 - O26.892) Feb, Back ache (ICD-10 - M54.9) PLAN OF TREATMENT Treatment Notes Test Name Order Date WW OBS LIMITED 2020-04-02 Next Appt Details 3 Weeks Reason: Provider Name:Scarlett Sal, 2020-04 01:00:00 PM, [address] [place], [address], Follow Up:3 WeeksPrenatal Insurance Providers Payer Name Payer Address Payer Phone Insured Name Patient Relati onship to Insured Coverage Start Date Coverage End Date [facility] COMMUNITY PLAN [facility] [address] [facility] [address] NICOLE ROWLAND 2015 05/15/9999
--- OUTSIDE RECORDS SUMMARY | 2020-06-02 07:05 | CCD ---
Author Author [facility] Organization [facility] Address Unknown Phone Unavailable Care Team Providers Care Cardiovascular Tech Name Role Phone Dawson, Armando Unavailable PROBLEMS Type Condition ICD9-CM Code [id number] Code Onset Dates Condition S tatus SNOMED Code Notes Problem ADD (attention deficit disorder) F90.0 Active 356742340 Problem Allergic rhinitis J30.9 Active 19469220 Problem Tobacco abuse Z72.0 Active 71201015 Problem Supervision of other normal Z34.80 Ac tive 518731915 Problem Goiter E04.9 Active 9070318 Problem Cigarette nicotine dependence without complication F17.210 Active 11016603 Problem Asthma J45.909 Active 848603984 Problem Vitamin D deficiency E55.9 Active 72126768 Problem Missed menses N92.6 Active 13303416 Problem Anxiety F41.9 Active 65911689 ALLERGIES Allergen (clinical drug ingredient) Drug/Non Drug Allergy do cumented on EMR Reaction Allergy Type Onset Date Status amoxicillin Amoxicillin([facility] Code:[address]-61) Nausea/Vomiting Drug Allergy Active ENCOUNTERS from 1993 to 2020-05-21 Encounter Location Date Provider Diagnosis [facility] [address] [place] [address] Apr, Armando Dawson Smoking (tobacco) co mplicating , third trimester O99.333 ; 36 weeks gestation of Z3A.36 and Cigarette smoker F17.210 IMMUNIZATIONS Vaccine Route Administration Date Status Gardasil [...] IM Intramuscular Apr 02, 2020 Administe red HIB 0.5mL Unknown October 06, 1994 Administered HIB 0.5mL Unknown Feb 02, 1994 Administered HIB 0.5mL Unknown 1993 Administered HIB 0.5mL Unknown 1993 Administered DTAP 0.5mL (Infanrix) Unknown August 20, 1998 Administer ed DTAP 0.5mL (Infanrix) Unknown October 06, 1994 Administer ed DTAP 0.5mL (Infanrix) Unknown Feb 02, 1994 Administer ed DTAP 0.5mL (Infanrix) Unknown 1993 Administer ed Hepatitis A Ped & Adol 0.5mL (Havrix) Unknown Jan 20 007 Administered IPV 0.5mL (Polio) Unknown 1993 Administered Influenza (6mo & up) Fluzone Unknown Jun 23, 2016 Ref used IPV 0.5mL (Polio) Unknown 1993 Administered MMR 0.5mL Unknown October 06, 1994 Administered MMR 0.5mL Unknown August 20, 1998 Administered Hepatitis A Ped & Adol 0.5mL (Havrix) Unknown Mar 11 06 Administered IPV 0.5mL (Polio) Unknown Jan 20, 1995 Administered IPV 0.5mL (Polio) Unknown August 20, 1998 Administered Hepatitis B Ped & Adol 0.5mL (Engerix-B) Unknown July Administered SOCIAL HISTORY Tobacco Use: Social History Observation Description Date Details (start date - stop date) Current Smoker Sex Assigned At : Social History Observation Description Sex Assigned At Unknown Education: Question Answer Notes Level of Education: Finished High School Language: Question Answer Notes Languages spoken: Mexican Baptist: Question Answer Notes Baptist 33 None Alcohol Screening: Question Answer Notes Did you [...] FOR REFERRAL No Information VITAL SIGNS Weight 175.8 lbs Apr, Weight-kg 79.74 kg Apr, Height 63.5 in Apr, BMI 30.653 kg/m2 Apr, Blood pressure systolic 110 mm Hg Apr, Blood pressure diastolic 68 mm Hg Apr, MEDICATIONS Medication SIG (Take, Route, Frequency, Duration) Notes Start Da te End Date Status Flintstones Complete Acti ve Loratadine 10 MG 1 tablet Orally Once a day Active Cetirizine HCl 10 MG TAKE ONE TABLET BY MOUTH EVERY DAY Oral for 30 Active PROCEDURES No Information RESULTS Component Value Reference Range GROUP B STREP CULTURE Reviewed date:05/12/2020 13:45:54 Interpretation: Performing Lab:[facility], [place] [address] GROUP B STREP CULTURE GROUP B STREP CULTURE Reviewed date:05/15/2020 12:19:41 Interpretation: Performing Lab:Counts include 234 beds at the [facility] [address] [address] , ,[facility] REASON FOR VISIT 1WK PN MEDICAL (GENERAL) HISTORY Type Description Date [...] Notes Treatment Notes Treatm ent Clinical Notes Apr, Smoking (tobacco) complicati ng , third trimester (ICD-10 - O99.333) Apr, 36 weeks gestation of (ICD-10 - Z3A.36 ) Apr, Cigarette smoker (ICD-10 - F17.210) PLAN OF TREATMENT Next Appt Details 1 Week Reason:follow-up Provider Name:Sonya Hammond 2020-05-22 10:00:00 AM, [address] [place], [address], Follow Up:1 Weekfollow-up Insurance Providers Payer Name Payer Address Payer Phone Insured Name Patient Relati onship to Insured Coverage Start Date Coverage End Date [facility] COMMUNITY PLAN [facility] [address] [facility] [address] NICOLE ROWLAND 2015 05/[birth year]
--- OUTSIDE RECORDS SUMMARY | 2020-06-02 07:05 | CCD ---
Author Author [facility] Organization [facility] Address Unknown Phone Unavailable Care Team Providers Care Business Continuity Manager Name Role Phone Jacyrick Marilu Unavailable PROBLEMS Type Condition ICD9-CM Code [id number] Code Onset Dates Condition S tatus SNOMED Code Notes Problem ADD (attention deficit disorder) F90.0 Active 900319103 Problem Allergic rhinitis J30.9 Active 12967899 Problem Tobacco abuse Z72.0 Active 35175915 Problem Supervision of other normal Z34.80 Ac tive 389344161 Problem Goiter E04.9 Active 4024415 Problem Cigarette nicotine dependence without complication F17.210 Active 28195188 Problem Asthma J45.909 Active 464926169 Problem Vitamin D deficiency E55.9 Active 71807913 Problem Missed menses N92.6 Active 55356430 Problem Anxiety F41.9 Active 49590623 ALLERGIES Allergen (clinical drug ingredient) Drug/Non Drug Allergy do cumented on EMR Reaction Allergy Type Onset Date Status amoxicillin Amoxicillin([facility] Code:[address]-73) Nausea/Vomiting Drug Allergy Active ENCOUNTERS from 1993 to 2020-04-11 Encounter Location Date Provider Diagnosis [facility] [address] [place] [address] 18 Mar, 2020 Marilu Escobar Smoking (tobacco) complicating , third trimester O99.333 ; Cigarette nicotine dependence, uncomplicated F17.210 ; 30 weeks gestation of Z3A.30 ; Encounter for immunization Z23 and Asthma J45.909 IMMUNIZATIONS Vaccine Route Administration Date Status Gardasil [...] 0.5mL (Havrix) Unknown Mar 11 06 Administered Hepatitis A Ped & Adol 0.5mL (Havrix) Unknown Jan 20 007 Administered IPV 0.5mL (Polio) Unknown 1993 Administered IPV 0.5mL (Polio) Unknown 1993 Administered Influenza (6mo & up) Fluzone Unknown Jun 23, 2016 Ref used MMR 0.5mL Unknown October 06, 1994 Administered MMR 0.5mL Unknown August 20, 1998 Administered IPV 0.5mL (Polio) Unknown Jan 20, [...] School Language: Question Answer Notes Languages spoken: Romansh Gnosticist: Question Answer Notes Gnosticist 33 None Domestic Violence: Question Answer Notes [...] FOR REFERRAL No Information VITAL SIGNS Weight 178 lbs Mar, Height 63.5 in Mar, BMI 31.037 kg/m2 Mar, Blood pressure systolic 118 mm Hg Mar, Blood pressure diastolic 68 mm Hg Mar, MEDICATIONS Medication SIG (Take, Route, Frequency, Duration) Notes Start Da te End Date Status Loratadine 10 MG 1 tablet Orally Once a day Active Flintstones Complete Acti ve PROCEDURES Procedure Date Ordered Result Body Site Immunization: Boostrix 0.5mL IM (TDAP) 2020-04-02 N/A RESULTS No Results REASON FOR VISIT 3 WK PN MEDICAL (GENERAL) HISTORY Type Description Date [...] Notes Treatment Notes Treatm ent Clinical Notes Mar, Smoking (tobacco) complicati ng , third trimester (ICD-10 - O99.333) Mar, Cigarette nicotine dependence, uncomplicated (IC D-10 - F17.210) Mar, 30 weeks gestation of (ICD-10 - Z3A.30 ) Mar, Encounter for immunization (ICD-10 - Z23) Mar, Asthma (ICD-10 - J45.909) PLAN OF TREATMENT Next Appt Details 2 Weeks Reason:PN Provider Name:Scarlett Sal, 2020-04 01:00:00 PM, [address] [place], [address], Follow Up:2 WeeksPN Insurance Providers Payer Name Payer Address Payer Phone Insured Name Patient Relati onship to Insured Coverage Start Date Coverage End Date [facility] COMMUNITY PLAN [facility] [address] [facility] [address] NICOLE ROWLAND 2017 05/15/9999
--- OUTSIDE RECORDS SUMMARY | 2020-06-02 07:05 | CCD ---
Author Author [facility] Organization [facility] Address Unknown Phone Unavailable Care Team Providers Care Brazing Machine Feeder Name Role Phone Armando Dawson Unavailable PROBLEMS Type Condition ICD9-CM Code [id number] Code Onset Dates Condition S tatus SNOMED Code Notes Problem ADD (attention deficit disorder) F90.0 Active 897927967 Problem Allergic rhinitis J30.9 Active 26474822 Problem Tobacco abuse Z72.0 Active 25973763 Problem Supervision of other normal Z34.80 Ac tive 415021527 Problem Goiter E04.9 Active 0687360 Problem Cigarette nicotine dependence without complication F17.210 Active 31581057 Problem Asthma J45.909 Active 503768508 Problem Vitamin D deficiency E55.9 Active 46335304 Problem Missed menses N92.6 Active 73955224 Problem Anxiety F41.9 Active 98759916 ALLERGIES Allergen (clinical drug ingredient) Drug/Non Drug Allergy do cumented on EMR Reaction Allergy Type Onset Date Status amoxicillin Amoxicillin([facility] Code:[address]-88) Nausea/Vomiting Drug Allergy Active ENCOUNTERS from 1993 to 2020-05-07 Encounter Location Date Provider Diagnosis [facility] [address] [place] [address] Apr, Armando Dawson Supervision of other high risk pregnancies, third trimester O09.893 and 35 weeks gestation of Z3A.35 IMMUNIZATIONS Vaccine Route Administration Date Status Gardasil [...] Administered IPV 0.5mL (Polio) Unknown 1993 Administered MMR 0.5mL Unknown October 06, 1994 Administered MMR 0.5mL Unknown August 20, 1998 Administered Influenza (6mo & up) Fluzone Unknown Jun 23, 2016 Ref used IPV 0.5mL (Polio) Unknown Jan 20, 1995 [...] School Language: Question Answer Notes Languages spoken: Danish Yazdanism: Question Answer Notes Yazdanism 33 None Alcohol Screening: Question Answer Notes [...] FOR REFERRAL No Information VITAL SIGNS Weight 177 lbs Apr, Height 63.5 in Apr, BMI 30.862 kg/m2 Apr, Blood pressure systolic 108 mm Hg Apr, Blood pressure diastolic 70 mm Hg Apr, MEDICATIONS Medication SIG (Take, Route, Frequency, Duration) Notes Start Da te End Date Status Cetirizine HCl 10 MG TAKE ONE TABLET BY MOUTH EVERY DAY Oral for 30 Active Flintstones Complete Acti ve Loratadine 10 MG 1 tablet Orally Once a day Active PROCEDURES No Information RESULTS No Results REASON FOR VISIT 4WK PN RESCHED DUE TO COVID MEDICAL (GENERAL) HISTORY Type Description Date Medical [...] Treatment Notes Treatm ent Clinical Notes Apr, Supervision of other high ri pregnancies, third trimester (ICD-10 - O09.893) Apr, 35 weeks gestation of (ICD-10 - Z3A.35 ) PLAN OF TREATMENT Next Appt Details 1 Week Reason:follow-up Provider Name:Armando Dawson 01:20:00 PM, [address] [place], [address], Follow Up:1 Weekfollow-up Insurance Providers Payer Name Payer Address Payer Phone Insured Name Patient Relati onship to Insured Coverage Start Date Coverage End Date [facility] COMMUNITY PLAN [facility] [address] [facility] [phone] NICOLE ROWLAND 2017 05/15/9999
--- OUTSIDE RECORDS SUMMARY | 2020-06-02 07:05 | CCD ---
Author Author [facility] Organization [facility] Address Unknown Phone Unavailable Care Team Providers Care Firer Diesel Locomotive Name Role Phone Sonya Hammond Unavailable PROBLEMS Type Condition ICD9-CM Code [id number] Code Onset Dates Condition S tatus SNOMED Code Notes Problem ADD (attention deficit disorder) F90.0 Active 375151493 Problem Allergic rhinitis J30.9 Active 41083692 Problem Tobacco abuse Z72.0 Active 05568196 Problem Supervision of other normal Z34.80 Ac tive 424965580 Problem Goiter E04.9 Active 0093327 Problem Cigarette nicotine dependence without complication F17.210 Active 81666314 Problem Asthma J45.909 Active 103034379 Problem Vitamin D deficiency E55.9 Active 53785818 Problem Missed menses N92.6 Active 09619552 Problem Anxiety F41.9 Active 43144058 ALLERGIES Allergen (clinical drug ingredient) Drug/Non Drug Allergy do cumented on EMR Reaction Allergy Type Onset Date Status amoxicillin Amoxicillin([facility] Code:[address]-83) Nausea/Vomiting Drug Allergy Active ENCOUNTERS from 1993 to 2020-05-28 Encounter Location Date Provider Diagnosis [facility] [address] [place] [address] May, Sonya Manish Smoking (tobacco) co mplicating , third trimester O99.333 ; Nicotine dependence, cigarettes, uncomplicated F17.210 ; 37 weeks gestation of Z3A.37 ; Other specified related co nditions, third trimester O26.893 and Low back pain M54.5 IMMUNIZATIONS Vaccine Route Administration Date Status Gardasil [...] School Language: Question Answer Notes Languages spoken: Khmer Baptism: Question Answer Notes Baptism 33 None Alcohol Screening: Question Answer Notes [...] FOR REFERRAL No Information VITAL SIGNS Weight 176.2 lbs May, Height 63.5 in May, BMI 30.723 kg/m2 May, Blood pressure systolic 112 mm Hg May, Blood pressure diastolic 68 mm Hg May, MEDICATIONS Medication SIG (Take, Route, Frequency, Duration) Notes Start Da te End Date Status Flintstones Complete Acti ve Loratadine 10 MG 1 tablet Orally Once a day Active Cetirizine HCl 10 MG TAKE ONE TABLET BY MOUTH EVERY DAY Oral for 30 Active PROCEDURES No Information RESULTS No Results REASON FOR VISIT 1wk pn MEDICAL (GENERAL) HISTORY Type Description Date Medical [...] Notes Treatment Notes Treatm ent Clinical Notes May, Smoking (tobacco) complicati ng , third trimester (ICD-10 - O99.333) May, Nicotine dependence, cigarettes, uncompl icated (ICD-10 - F17.210) May, 37 weeks gestation of (ICD-10 - Z3A.37 ) May, Other specified re lated conditions, third trimester (ICD- 10 - O26.893) May, Low back pain (ICD-10 - M54.5) PLAN OF TREATMENT Next Appt Details 1 Week Reason: Provider Name:Marilu Escobar, 2020-05-29 03:00:00 PM, [address] [place], [address], Follow Up:1 Weekprenatal Insurance Providers Payer Name Payer Address Payer Phone Insured Name Patient Relati onship to Insured Coverage Start Date Coverage End Date [facility] COMMUNITY PLAN [facility] [address] [facility] [phone] NICOLE ROWLAND 2015 [birth year]
--- OUTSIDE RECORDS SUMMARY | 2020-06-02 07:06 | CCD ---
Author Author [facility] Organization [facility] Address Unknown Phone Unavailable Care Team Providers Care Regional Sales Manager Name Role Phone Marilu Escobar Unavailable PROBLEMS Type Condition ICD9-CM Code [id number] Code Onset Dates Condition S tatus SNOMED Code Notes Problem ADD (attention deficit disorder) F90.0 Active 967245155 Problem Allergic rhinitis J30.9 Active 24276379 Problem Tobacco abuse Z72.0 Active 75027890 Problem Supervision of other normal Z34.80 Ac tive 756410619 Problem Goiter E04.9 Active 1393030 Problem Cigarette nicotine dependence without complication F17.210 Active 45606024 Problem Asthma J45.909 Active 956659532 Problem Vitamin D deficiency E55.9 Active 93589335 Problem Missed menses N92.6 Active 42650299 Problem Anxiety F41.9 Active 68774703 ALLERGIES Allergen (clinical drug ingredient) Drug/Non Drug Allergy do cumented on EMR Reaction Allergy Type Onset Date Status amoxicillin Amoxicillin([facility] Code:[address]-06) Nausea/Vomiting Drug Allergy Active ENCOUNTERS from 1993 to 2020-03-12 Encounter Location Date Provider Diagnosis [facility] [address] [place] [address] Feb, Marilu Escobar Smoking (tobacco) complicating , second trimester O99.332 ; Cigarette smoker one half pack a day or less F17.210 ; 23 weeks gestation of Z3A.23 and Encounter for supervision of other normal in second trimester Z34.82 IMMUNIZATIONS Vaccine Route Administration Date Status Gardasil [...] DTAP 0.5mL (Infanrix) Unknown 1993 Administer ed HIB 0.5mL Unknown October 06, 1994 Administered [...] School Language: Question Answer Notes Languages spoken: [place] Ep[employer]opalian: Question Answer Notes Ep[employer]opalian 33 None Domestic Violence: Question Answer Notes [...] FOR REFERRAL No Information VITAL SIGNS Weight 174 lbs Feb, Height 63.5 in Feb, BMI 30.339 kg/m2 Feb, Blood pressure systolic 116 mm Hg Feb, Blood pressure diastolic 66 mm Hg Feb, MEDICATIONS Medication SIG (Take, Route, Frequency, Duration) Start Date En d Date Status Flintstones Complete Active Loratadine 10 MG 1 tablet Orally Once a day Active PROCEDURES No Information RESULTS Component Value Reference Range Type and Screen (D Rh Antibody Screen) Reviewed date:03/06/2020 13:05:27 Interpretation: Performing Lab:[facility] LABORATORY [address] [address] , ,[place] [address] BLOOD TYPE O POSITIVE AB SCREEN (INDIRECT FCO)VIS NEGATIVE CBC - Complete Blood Count Reviewed date:03/06/2020 13:05:14 Interpretation: Performing Lab:[facility] LABORATORY [address] [address] , ,[place] [address] WHITE BLOOD COUNT 15.3 4.0-10.0 RED BLOOD COUNT 3.70 4.00-5.40 HEMOGLOBIN 11.2 12.0-15.5 HEMATOCRIT 34.6 36.0-47.0 MEAN CORPUSCULAR VOLUME 93.5 80.0-96.0 MEAN CORPUSCULAR HEMOGLOBIN 30.3 27.0-33.0 MEAN CORPUSCULAR HGB CONC 32.4 32.0-36.5 RED CELL DISTRIBUTION WIDTH 13.4 11.5-14.5 PLATELET COUNT, AUTOMATED 317 150-450 Pre Eclampsia Profile Reviewed date:03/06/2020 13:05:52 Interpretation: Performing Lab:[facility] LABORATORY [address] [address] , ,[place] [address] CREATININE FOR GFR 0.52 0.55-1.30 GLOMERULAR FILTRATION RATE > 60.0 >60 AST/SGOT 10 7-37 ALT/SGPT 8 12-78 LDH LACTATE DEHYDROGENASE 146 84-246 BILIRUBIN,TOTAL 0.1 0.2-1.0 URIC ACID 3.3 2.6-6.0 Glucose Challenge Test 1 Hour Reviewed date:03/06/2020 13:05:37 Interpretation: Performing Lab:[facility] LABORATORY [address] [address] , ,[place] [address] GLUCOSE CHALLENGE TEST 1 HOUR 99 LESS THAN 140 CREATININE,RANDOM URINE Reviewed date:03/06/2020 13:09:23 Interpretation: Performing Lab:[facility] LABORATORY [address] [address] , ,[place] [address] CREATININE,RANDOM URINE 64.2 TOTAL PROTEIN,RANDOM URINE Reviewed date:03/06/2020 13:07:39 Interpretation: Performing Lab:[facility] LABORATORY [address] [address] , ,[place] [address] TOTAL PROTEIN,RANDOM URINE 12.6 0.0-12.0 REASON FOR VISIT 4 WK PN MEDICAL (GENERAL) HISTORY Type Description [...] STATUS No Information ASSESSMENTS Encounter Date Diagnosis Notes Feb, Encounter for supervision of other normal in second trimester (ICD-10 - Z34.82) Feb, 23 weeks gestation of (ICD-10 - Z3A.23) Feb, Cigarette smoker one half pack a day or less (ICD-10 - F17.210) Feb, Smoking (tobacco) complicati ng , second trimester (ICD-10 - O99.332) PLAN OF TREATMENT Treatment Notes Test Name Order Date AB SCREEN (INDIRECT FCO)GEL Antibody Screen 2020-02 [facility] OBS FOLLOW UP OR REPEAT 2020-03-12 Next Appt Details 4 Weeks Reason:return ob Provider Name:Sonya Gerardo Hammond, 2020-03-13 03:00:00 PM, [address] [place], [address], Follow Up:4 Weeksreturn ob Insurance Providers Payer Name Payer Address Payer Phone Insured Name Patient Relati onship to Insured Coverage Start Date Coverage End Date [employer] [facility] [address] [place] [id number] [phone] NICOLE ROWLAND 2017 05/15/9999
--- OUTSIDE RECORDS SUMMARY | 2020-06-02 07:06 | CCD ---
Author Author [facility] Organization [facility] Address Unknown Phone Unavailable Care Team Providers Care Phlebotomy Supervisor Name Role Phone DRAZEK, I SO PA Unavailable Unavailable DRAZEK, I SO PA Unavailable Unavailable DRAZEK, I SO PA Unavailable Unavailable DRAZEK, I SO PA Unavailable Unavailable DRAZEK, I SO PA Unavailable Unavailable DRAZEK, I SO PA Unavailable Unavailable DRAZEK, I SO PA Unavailable Unavailable DRAZEK, I SO PA Unavailable Unavailable DRAZEK, I SO PA Unavailable Unavailable DRAZEK, I SO PA Unavailable Unavailable DRAZEK, I SO PA Unavailable Unavailable DRAZEK, I SO PA Unavailable Unavailable DRAZEK, I SO PA Unavailable Unavailable DRAZEK, I SO PA Unavailable Unavailable DRAZEK, I SO PA Unavailable Unavailable DRAZEK, I SO PA Unavailable Unavailable DRAZEK, I SO PA Unavailable Unavailable DRAZEK, I SO PA Unavailable Unavailable DRAZEK, I SO PA Unavailable Unavailable DRAZEK, I SO PA Unavailable Unavailable DRAZEK, I SO PA Unavailable Unavailable DRAZEK, I SO PA Unavailable Unavailable DRAZEK, I SO PA Unavailable Unavailable DRAZEK, I SO PA Unavailable Unavailable DRAZEK, I SO PA Unavailable Unavailable DRAZEK, I SO PA Unavailable Unavailable DRAZEK, I SO PA Unavailable Unavailable DRAZEK, I SO PA Unavailable Unavailable DRAZEK, I SO PA Unavailable Unavailable DRAZEK, I SO PA Unavailable Unavailable Dille, E Latoya DDS Unavailable Unavailable Dille, E Latoya DDS Unavailable Unavailable Dille, E Latoya DDS Unavailable Unavailable Dille, E Latoya DDS Unavailable Unavailable Re-disclosure Warning The records that you are about to access may contain information from federally-assisted alcohol or drug abuse programs. If such information is present, then the following federally mandated warning applies: This information has been disclosed to you from records protected by federal confidentiality rules (42 CFR part 2). The federal rules prohibit you from making any further disclosure of this information unless further disclosure is expressly permitted by the written consent of the person to whom it pertains or as otherwise permitted by 42 CFR part 2. A general authorization for the release of medical or other information is NOT sufficient for this purpose. The Federal rules restrict any use of the information to criminally investigate or prosecute any alcohol or drug abuse patient.The records that you are about to access may contain highly sensitive health information, the redisclosure of which is protected by Article 27-F of the [facility] Public Health law. If you continue you may have access to information: Regarding HIV / AIDS; Provided by facilities licensed or operated by the [facility] Office of Mental Health; or Provided by the [facility] Office for People With Developmental Disabilities. If such information is present, then the following [facility] mandated warning applies: This information has been disclosed to you from confidential records which are protected by state law. State law prohibits you from making any further disclosure of this information without the specific written consent of the person to whom it pertains, or as otherwise permitted by law. Any unauthorized further disclosure in violation of state law may result in a fine or retirement sentence or both. A general authorization for the release of medical or other information is NOT sufficient authorization for further disc losure. Allergies and Adverse Reactions Type Description Substance Reaction Status Data Source(s ) Drug allergy Amoxicillin Amoxicillin Nausea/Vomiting Active eCW1 ([facility]) Drug Allergy NKDA NKDA MEDENT ([facility]) Family History Family Member Name Family Member Gender Family Member Status Date o f Status Description Data Source(s) Unknown Unknown Problem MEDENT ([facility]) mgm Unknown Male Problem MEDENT ([facility]) Encounters Encounter Providers Location Date Indications Data Source(s ) ( [facility]OB) [facility] [address] [id number] 05/22/2020 12:00:00 AM EST eCW1 ([facility]) ( ESTOB) [facility] [address] 05/12/2020 12:00:00 AM EST eCW1 ([facility]) ( ESTOB) [facility] [address] 05/05/2020 12:00:00 AM EST eCW1 ([facility]) (WC ESTOB) [facility] [address] [place] [address] 04/02/2020 12:00:00 AM EST eCW1 ([facility]) ( ESTOB) enter Est [place] [address] 03/13/2020 12:00:00 AM EDT eCW1 ([facility]) (WC ESTOB) [facility] [address] 02/14/2020 12:00:00 AM EDT eCW1 ([facility]) Outpatient Attender: SO NEGRON Physical Therapy 01/04/2020 0 2:15:00 PM EDT MEDENT ([facility]) (WC ESTOB) enter Est OB [address] 11/13/2019 12:00:00 AM EDT eCW1 ([facility]) Outpatient Attender: SO NEGRON Physical Therapy 11/01/2019 0 3:30:00 PM EDT MEDENT ([facility]) Outpatient Attender: Latoya Cheung DDS [facility] 10/11/2019 0 1:00:00 PM EDT MEDENT ([facility]) Outpatient Attender: SO NEGRON [facility] Therapy 10/01/2019 0 1:30:00 PM EDT MEDENT ([facility]) Outpatient Attender: Latoya ESCOTO 09/13/2019 01:56:00 P M [facility] Outpatient Attender: Latoya MASON 08/20/2019 10:07:01 A M [facility] Outpatient Attender: Latoya MASON 07/30/2019 11:00:01 A M [address] [address] 07/18/2019 12:00:00 AM EST eCW1 ([facility]) Outpatient Attender: Latoya MASON 07/03/2019 11:50:01 A M [address] [address] 06/01/2019 12:00:00 AM EST eCW1 [facility] Outpatient Attender: Latoya MASON 05/28/2019 03:20:01 P [facility] Outpatient Attender: Latoya ESCOTO 05/28/2019 03:20:00 P [facility] Outpatient Attender: Latoya MASON 05/28/2019 01:56:02 P [facility] Outpatient Attender: Latoya ESCOTO 05/28/2019 01:55:00 P [facility] Outpatient Attender: Latoya ESCOTO 05/28/2019 01:46:01 P [facility] Outpatient Attender: Latoya MASON 05/28/2019 01:03:01 P [facility] Outpatient Attender: Latoya ESCOTO 05/28/2019 10:31:00 [place] [address] [place] [address] 05/28/2019 12:00:00 AM EST eCW1 ([facility]) [address] [address] 04/27/2019 12:00:00 AM EST eCW1 ([facility]) [address] [address] 04/27/2019 12:00:00 AM EST eCW1 ([facility]) Immunizations Vaccine Date Status Description Data Source(s) Tdap 04/02/2020 09:11:00 AM EST completed e CW1 ([facility]) Tdap 04/02/2020 09:11:00 AM EST completed e CW1 ([facility]) Tdap 04/02/2020 09:11:00 AM EST completed e CW1 ([facility]) Tdap 04/02/2020 09:11:00 AM EST completed e CW1 ([facility]) Tdap 04/02/2020 09:11:00 AM EST completed e CW1 ([facility]) Medications Medication Brand Name Start Date Product Form Dose Route Admi nistrative Instructions Pharmacy Instructions Status Indications Reaction Description Data Source(s) 10 mg 11/20/2019 12:00:00 AM EDT tablet 30 TAKE ONE TABLET BY MOUTH EVERY DAY TAKE ONE TABLET BY MOUTH EVERY DAY SOLD: 11/21/2019 [facility] 137 mcg (0.1 %) 11/20/2019 12:00:00 AM EDT aerosol,spray 30 SPRAY 1 TO 2 SPRAYS IN EACH NOSTRIL TWO TIMES A DAY FOR 10 DAYS SPRAY 1 TO 2 SPRAYS IN EACH NOSTRIL TWO TIMES A DAY FOR 10 DAYS SOLD: 11/21/2019 [facility] 600 mg 10/02/2019 12:00:00 AM EDT tablet 90 TAKE ONE TABLET BY MOUTH THREE TIMES A DAY TAKE ONE TABLET BY MOUTH THREE TIMES A DAY SOLD: 10/02/2019 [facility] Ibuprofen 600 MG Oral Tablet Ibuprofen 10/01/2019 12:00:00 AM EDT ORAL active MEDENT ([facility]) 50 mcg/actuation 08/22/2019 12:00:00 AM EDT spray,suspension 16 SPRAY TWO SPRAYS IN EACH NOSTRIL EVERY DAY SPRAY TWO SPRAYS IN EACH NOSTRIL EVERY DAY SOLD: 08/22/2019 [facility] 100 mg 08/22/2019 12:00:00 AM EDT capsule 20 TAKE ONE CAPSULE BY MOUTH TWICE A DAY FOR 10 DAYS TAKE ONE CAPSULE BY MOUTH TWICE A DAY FOR 10 DAYS SOLD : 08/22/2019 [facility] 30 mg 08/22/2019 12:00:00 AM EDT tablet 40 TAKE 1 TABLET EVERY 6 HOURS NEEDED FOR 10 DAYS TAKE 1 TABLET EVERY 6 HOURS NEEDED FOR 10 DAYS SOLD : 08/22/2019 [facility] 800 mg 06/19/2019 12:00:00 AM EST tablet 20 TAKE ONE TABLET BY MOUTH EVERY 6 HOURS NEEDED FOR PAIN MAXIMUM DAILY DOSE = FOUR TABLETS TAKE ONE TABLET BY MOUTH EVERY 6 HOURS NEEDED FOR PAIN MAXIMUM DAILY DOSE = FOUR TABLETS SOLD: 06/19/2019 [facility] 0.12 % 06/19/2019 12:00:00 AM EST mouthwash 473 TAKE 15ML BY MOUTH SWISH FOR 30 SECONDS AND EXPECTORATE FOUR TIMES A DAY TAKE 15ML BY MOUTH SWISH FOR 30 SECONDS AND EXPECTORATE FOUR TIMES A DAY SOLD: 06/19/2019 [facility] 5-325 mg 06/19/2019 12:00:00 AM EST tablet 20 TAKE ONE TABLET BY MOUTH EVERY 6 HOURS NEEDED FOR PAIN MAXIMUM DAILY DOSE = FOUR TABLETS TAKE ONE TABLET BY MOUTH EVERY 6 HOURS NEEDED FOR PAIN MAXIMUM DAILY DOSE = FOUR TABLETS SOLD: 06/19/2019 [facility] 300 mg 06/19/2019 12:00:00 AM EST capsule 21 TAKE 1 CAP BY MOUTH EVERY 8 HOURS UNTIL GONE TAKE 1 CAP BY MOUTH EVERY 8 HOURS UNTIL GONE SOLD: 0 [facility] 15 mg 04/28/2019 12:00:00 AM EST capsule,extended releas e 24hr 30 TAKE ONE CAPSULE BY MOUTH EVERY MORNING MAXIMUM DAILY DOSE = ONE CAPSULE TAKE ONE CAPSULE BY MOUTH EVERY MORNING MAXIMUM DAILY DOSE = ONE CAPSULE SOLD: 04/29/2019 [facility] 1,250 mcg (50,000 unit) 04/27/2019 12:00:00 AM EST capsule 12 ONE CAPSULE BY MOUTH WEEKLY ONE CAPSULE BY MOUTH WEEKLY SOLD: 04/29/2019 [facility] montelukast 10 MG Oral Tablet MONTELUKAST SODIUM 04/27/2019 12:0 0:00 AM EST tablet 30 TAKE ONE TABLET BY MOUTH EVERY E VENING TAKE ONE TABLET BY MOUTH EVERY EVENING SOLD: 04/29/2019 [facility] 24 HR Amphetamine aspartate 3.75 MG / Am phetamine Sulfate 3.75 MG / Dextroamphetamine saccharate 3.75 MG / Dextroamphetamine Sulfate 3.75 MG Extended Release Oral Capsule [Adderall] Adderall XR 15 MG Adderall XR 15 MG 04/27/2019 12:00:00 AM EST active 1 capsule in the morning [facility] ([facility]) montelukast 10 MG Oral Tablet MONTELUKAST SODIUM 04/27/2019 12:0 0:00 AM EST tablet 30 TAKE ONE TABLET BY MOUTH EVERY E VENING TAKE ONE TABLET BY MOUTH EVERY EVENING SOLD: 06/09/2019 [facility] 90 mcg/actuation 04/27/2019 12:00:00 AM EST HFA aerosol inha ler 18 INHALE TWO PUFFS BY MOUTH EVERY 6 HOURS FOR 10 DAYS INHALE TWO PUFFS BY MOUTH EVERY 6 HOURS FOR 10 DAYS SOLD: 04/29/2019 [facility] 10 mg 04/27/2019 12:00:00 AM EST tablet 30 ONE T ABLET BY MOUTH NEEDED ONE TABLET BY MOUTH NEEDED SOLD: 04/29/2019 [facility] 100 mg 04/17/2019 12:00:00 AM EST capsule 14 TAKE ONE CAPSULE BY MOUTH TWICE A DAY FOR 7 DAYS TAKE ONE CAPSULE BY MOUTH TWICE A DAY FOR 7 DAYS SOLD: 04/17/2019 [facility] 15 mg 04/02/2019 12:00:00 AM EST capsule,extended releas e 24hr 30 TAKE ONE CAPSULE BY MOUTH EVERY MORNING MAXIMUM DAILY DOSE = 1 TAKE ONE CAPSULE BY MOUTH EVERY MORNING MAXIMUM DAILY DOSE = 1 SOLD: 04/03/2019 [facility] Insurance Providers Payer name Policy type / Coverage type Policy ID Covered republican ID Covered republican's relationship to sarabia Policy Sar[place] Plan Information [facility] COMMUNITY PLAN [facility] [id number] SP [id number] [facility] O [id number] S [id number] Managed Care [facility] Community Plan P [id number] S [id number] Medicaid S [id number] S [id number] MEDICAID [id number] SP [id number] SELF PAY ONLY [id number] SP [id number] ANSI-Medicaid [id number] ANSI-Medicaid [id number] ANSI-Medicaid [id number] [facility] COMMUNITY PLAN [facility] [id number] SP [id number] Managed Care - Community Plan [facility] P [id number] S [id number] MEDICAID [id number] SP [id number] [facility] Health Maintenance Organization (O) [id number] Self [id number] ANSI-Medicaid [id number] [facility] Health Maintenance Organization (HMO) [id number] Self [id number] [facility] Health Maintenance Organization (O) [id number] Self [id number] ANSI-Medicaid [id number] ANSI-Medicaid [id number] [facility] Community Plan Medigap Part B [id number] Self [id number] [place] [id number] Self [id number] D Managed Care [facility] S [id number] S [id number] MEDICAID M [id number] S [id number] MEDICAID [id number] SP [id number] Medicaid P [id number] S [id number] [facility] Health Maintenance Organization (HMO) [id number] Self [id number] [facility] P [id number] S [id number] [employer] P [id number] S [id number] MEDICAID P [id number] S [id number] Problems, Conditions, and Diagnoses Code Display Name Description Problem Type Effective Dates Data Source(s) F17.210 [id number] Cigarette nicotine dependence without com plication Problem 03/12/2020 12:00:00 AM EDT eCW1 ([facility]) Z34.80 care Supervision of other normal P roblem 11/12/2019 12:00:00 AM EDT eCW1 ([facility]) 521.00 Dental caries Dental caries 05/28/2019 03:19:47 PM [facility] 525.10 Teeth extraction Teeth extraction 05/28/2019 03 :19:47 PM [facility] F41.9 [id number] Anxiety Problem 04/27/2019 12:00:00 AM ES T eCW1 ([facility]) F41.9 [id number] Anxiety Problem 04/27/2019 12:00:00 AM ES T eCW1 ([facility]) Surgeries/Procedures Procedure Description Date Indications Data Source(s) Immunization: Boostrix 0.5mL IM (TDAP) 04/02/2020 12:0 0:00 AM EST eCW1 ([facility]) APPLICATION CAST ELBOW FINGER SHORT ARM 10/01/2019 12: 00:00 AM EDT MEDENT ([facility]) Results ID Date Data Source [id number] 05/21/2020 12:00:00 AM EST [facility] Name Value Range Interpretation Code Description Data Glenny rce(s) Supporting Document(s) SARS coronavirus 2 RNA [Presence] in Res piratory specimen by OBDULIO with probe detection NEGATIVE [facility] This lab was ordered by Katie Cox and reported by [facility]. ID Date Data Source [id number] 05/21/2020 12:00:00 AM EST [facility] Name Value Range Interpretation Code Description Data Glenny rce(s) Supporting Document(s) Carestart Rapid COVID Antigen Test Negative [facility] This lab was reported by Katie collazo. ID Date Data Source GROUP B STREP CULTURE 05/12/2020 12:00:00 AM EST eCW1 ([facility]) Name Value Range Interpretation Code Description Data Glenny rce(s) Supporting Document(s) GROUP B STREP CULTURE eCW1 ([facility]) ID Date Data Source [id number] 04/11/2020 12:00:00 AM EST [facility] Name Value Range Interpretation Code Description Data Glenny rce(s) Supporting Document(s) SARS coronavirus 2 RNA [Presence] in Res piratory specimen by OBDULIO with probe detection [facility] This lab was ordered by Katie Cox and reported by [facility]. ID Date Data Source CREATININE,RANDOM URINE 03/06/2020 02:09:23 AM EDT eCW1 ([facility]) Name Value Range Interpretation Code Description Data Glenny rce(s) Supporting Document(s) 64.2 CREATININE,RANDOM URINE eCW1 ( [facility]) ID Date Data Source TOTAL PROTEIN,RANDOM URINE 03/06/2020 02:07:39 AM EDT eCW1 ( [facility]) Name Value Range Interpretation Code Description Data Glenny rce(s) Supporting Document(s) 12.6 TOTAL PROTEIN,RANDOM URINE eCW 1 ([facility]) ID Date Data Source Pre Eclampsia Profile 03/06/2020 02:05:52 AM EDT eCW1 ([facility]) Name Value Range Interpretation Code Description Data Glenny rce(s) Supporting Document(s) 0.52 CREATININE FOR GFR eCW1 ([facility]) > 60.0 GLOMERULAR FILTRATION RATE eCW 1 ([facility]) 10 AST/SGOT eCW1 ([facility]) 0.1 BILIRUBIN,TOTAL eCW1 ([facility]) 8 ALT/SGPT eCW1 ([facility]) 146 LDH LACTATE DEHYDROGENASE eCW1 ([facility]) 3.3 URIC ACID eCW1 ([facility]) ID Date Data Source Glucose Challenge Test 1 Hour 03/06/2020 02:05:37 AM EDT eCW 1 ([facility]) Name Value Range Interpretation Code Description Data Glenny rce(s) Supporting Document(s) 99 GLUCOSE CHALLENGE TEST 1 HOUR eCW1 ([facility]) ID Date Data Source Type and Screen (D Rh Antibody Screen) 03/06/2020 02:05:27 A M EDT eCW1 ([facility]) Name Value Range Interpretation Code Description Data Glenny rce(s) Supporting Document(s) NEGATIVE AB SCREEN (INDIRECT COOMB S)VIS eCW1 ([facility]) O POSITIVE BLOOD TYPE eCW1 ([facility]) ID Date Data Source CBC - Complete Blood Count 03/06/2020 02:05:14 AM EDT eCW1 ( [facility]) Name Value Range Interpretation Code Description Data Glenny rce(s) Supporting Document(s) 15.3 WHITE BLOOD COUNT eCW1 ([facility]) 34.6 HEMATOCRIT eCW1 ([facility]) 11.2 HEMOGLOBIN eCW1 ([facility]) 3.70 RED BLOOD COUNT eCW1 ([facility]) 93.5 MEAN CORPUSCULAR VOLUME eCW1 ( [facility]) 13.4 RED CELL DISTRIBUTION WIDTH eC W1 ([facility]) 30.3 MEAN CORPUSCULAR HEMOGLOBIN eC W1 ([facility]) 32.4 MEAN CORPUSCULAR HGB CONC eCW1 ([facility]) 317 PLATELET COUNT, AUTOMATED eCW1 ([facility]) ID Date Data Source HBSAG 11/21/2019 02:31:03 AM EDT eCW1 ([facility]) Name Value Range Interpretation Code Description Data Glenny rce(s) Supporting Document(s) NEGATIVE eCW1 ([facility]) ID Date Data Source HEPATITIS C ANTIBODY INDEX 11/21/2019 02:30:55 AM EDT eCW1 ( [facility]) Name Value Range Interpretation Code Description Data Glenny rce(s) Supporting Document(s) 0.1 eCW1 ([facility]) ID Date Data Source RUBELLA IMMUNE STATUS IgG 11/21/2019 02:30:46 AM EDT eCW1 ([facility]) Name Value Range Interpretation Code Description Data Glenny rce(s) Supporting Document(s) IMMUNE eCW1 ([facility]) ID Date Data Source SYPHILIS ANTIBODY (RPR SCREEN) 11/21/2019 02:30:38 AM EDT eC W1 ([facility]) Name Value Range Interpretation Code Description Data Glenny rce(s) Supporting Document(s) NONREACTIVE eCW1 ([facility]) ID Date Data Source [id number] 11/21/2019 02:30:29 AM EDT eCW1 ([facility]) Name Value Range Interpretation Code Description Data Glenny rce(s) Supporting Document(s) eCW1 ([facility]) ID Date Data Source URINE CULTURE 11/20/2019 09:03:23 AM EDT eCW1 ([facility]) Name Value Range Interpretation Code Description Data Glenny rce(s) Supporting Document(s) eCW1 ([facility]) ID Date Data Source Type and Screen Prenatal1 11/20/2019 09:02:46 AM EDT eCW1 ([facility]) Name Value Range Interpretation Code Description Data Glenny rce(s) Supporting Document(s) NEGATIVE eCW1 ([facility]) ID Date Data Source CHLAMYDIA & GC DNA AMPLIFICAT 11/20/2019 09:02:13 AM EDT eCW 1 ([facility]) Name Value Range Interpretation Code Description Data Glenny rce(s) Supporting Document(s) Chlamydia trachomatis rRNA [Presence] in Unspecified specimen by Probe and target amplification method NEGATIVE eCW1 ([facility]) ID Date Data Source [id number] 05/28/2019 01:09:06 PM [facility] Current Problems: Dental caries (ICD-521 .00) (NKA43-O92.9)Teeth extraction (ICD- 525.10) (LAQ54-F11.499)Teeth extraction (ICD-525.10) (KII59-G22.499)LONG-TERM (CURRENT) USE OF OTHER MEDICATIONS (ICD-V58.69)WISDOM TEETH IMPACTION (ICD- 520.6) (KJH80-X54.1)LUMBAR STRAIN (ICD-847.2) (MJP99-A31.012)FH P M S (ICD- V19.8)FH PSYCHIATRIC CARE (ICD-V17.0) (JET94-O32.8)FH HEADACHES (ICD-V19.8)FH THYROID PROBLEMS (ICD-V18.19) (OPH89-I26.49)FH SEIZURES (ICD-V17.2) (ICD10- Z82.0)FH MIGRAINES (ICD-V19.8)FH LUNG/RESPIRATORY DISEASE (ICD-V17.6) (ICD10- Z83.6)FH HIGH CHOLESTEROL (ICD-V18.19) (YAS63-N51.49)FH HYPERTENSION (ICD- V17.49) (KVH80-Z83.49)FH HEART DISEASE (ICD-V17.49) (NAT52-M62.49)FH DIABETES (ICD-V18.0) (TYR51-F18.3)FH DEPRESSION (ICD-V17.0) (XHP21-Y44.8)FH OF ANXIETY (ICD-V17.0) (YTA22-V75.8)Current Allergies: * SEASONAL (Critical) Dental Chart: Procedures:Type - CDT Code - Description B - (D0330) Panoramic film (Performed by Jessica Hutchins DMD) B - (D0140) Limited oral evaluatio n - problem focused on Tooth # 16 (Performed by Jessica Hutchins DMD) Treatments:Type - CDT Code - Description T - (D7140) Extraction, erupted tooth or exposed root (elevation and/or forceps removal) on Tooth # 15 (Performed by Jessica Hutchins DMD) T - (D7140) Extraction, erupted tooth or exposed root (elevation and/or forceps removal) on Tooth # 16 (Performed by Jessica Hutchins DMD) T - (D7140) Extraction, erupted tooth or exposed root (elevation and/or forceps removal) on Tooth # 1 (Performed by Jessica Hutchins DMD) Existing:Type - CDT Code - Description[E] Missing - Mcconnico and Root On #30 Surface O Region XR Chart Notes:raquel (May 28 2019 3:19PM): S: CC: "I was eating some Fritos last night and I broke my tooth on the top left. The air makes it hurt really bad and I cannot stand it."O: RMHx (-) per pt. is allergic to Penicilin. HPI: yesterday. PL: 5. BP: 132/78 Pulse:85. Panorex taken. #15-OL fractured with no signs of swelling. Referred pain from #16. A: DX: #15-OL fractired and referred pain from wisdom teeth impaction. Stressed the importance to pt. to establish care with a dentist.P: DDS recommends to have all wisdom teeth to be extracted as well as #15. Placed referral to OS for extraction of all wisdom and #15.Informed Pt about new pain management policy of the clinic regarding about narcotic,told pt to alternate Ibuprophen 600- 800mg and tylenol 500mg every 4 to 6 hrs for pain when neededAssisted By:AM.NV: new p/e.Jessica Hutchins DMD by raquel (05/28/2019 3:19 PM): Tooth Notes and Watches:- Tooth 20 Watch: Judith Joyner by andi (10/05/2017 1:44 PM): Assessment & Plan Problems:Added: Teeth extraction (ICD- 525.10) (VLC02-W59.499)Dental caries (ICD-521.00) (SHN44-H35.9)Allergies:* SEASONAL (Critical)Orders:Oral Surgery Referral [CPT-78125] Name Value Range Interpretation Code Description Data Glenny rce(s) Supporting Document(s) Procedure Social History Code Duration Value Status Description Data Source(s ) Smoking 05/17/2020 12:00:00 AM EST Current Smoker completed Curre nt Smoker eCW1 ([facility]) Smoking 05/17/2020 12:00:00 AM EST Current Smoker completed Curre nt Smoker eCW1 ([facility]) Smoking 05/02/2020 12:00:00 AM EST Current Smoker completed Curre nt Smoker eCW1 ([facility]) Smoking 04/02/2020 12:00:00 AM EST Current Smoker completed Curre nt Smoker eCW1 ([facility]) Smoking 04/02/2020 12:00:00 AM EST Current Smoker completed Curre nt Smoker eCW1 ([facility]) Smoking 03/07/2020 12:00:00 AM EDT Current Smoker completed Curre nt Smoker eCW1 ([facility]) Smoking 02/14/2020 12:00:00 AM EDT Current Smoker completed Curre nt Smoker eCW1 ([facility]) Vital Signs ID Date Data Source UNK Name Value Range Interpretation Code Description Data Source(s) Diastolic blood pressure 68 mm[Hg] 68 mm[Hg] eCW1 ([facility]) Systolic blood pressure 112 mm[Hg] 112 mm[Hg] e CW1 ([facility]) Body mass index (BMI) [Ratio] 30.723 kg/m2 30.7 23 kg/m2 W1 ([facility]) Body height 63.5 [in_i] 63.5 [in_i] W1 ([facility]) Body weight 176.2 [lb_av] 176.2 [lb_av] eCW1 ([facility]) Diastolic blood pressure 68 mm[Hg] 68 mm[Hg] eCW1 ([facility]) Systolic blood pressure 110 mm[Hg] 110 mm[Hg] e CW1 ([facility]) Body mass index (BMI) [Ratio] 30.653 kg/m2 30.6 53 kg/m2 W1 ([facility]) Body height 63.5 [in_i] 63.5 [in_i] eCW1 ([facility]) Body weight 79.74 kg 79.74 kg W1 ([facility]) Body weight 175.8 [lb_av] 175.8 [lb_av] eCW1 ([facility]) Diastolic blood pressure 70 mm[Hg] 70 mm[Hg] eCW1 ([facility]) Systolic blood pressure 108 mm[Hg] 108 mm[Hg] e CW1 ([facility]) Body mass index (BMI) [Ratio] 30.862 kg/m2 30.8 62 kg/m2 eCW1 ([facility]) Body height 63.5 [in_i] 63.5 [in_i] eCW1 ([facility]) Body weight 177 [lb_av] 177 [lb_av] eCW1 ([facility]) Diastolic blood pressure 68 mm[Hg] 68 mm[Hg] eCW1 ([facility]) Systolic blood pressure 118 mm[Hg] 118 mm[Hg] e CW1 ([facility]) Body mass index (BMI) [Ratio] 31.037 kg/m2 31.0 37 kg/m2 eCW1 ([facility]) Body height 63.5 [in_i] 63.5 [in_i] eCW1 ([facility]) Body weight 178 [lb_av] 178 [lb_av] eCW1 ([facility]) Diastolic blood pressure 70 mm[Hg] 70 mm[Hg] eCW1 ([facility]) Systolic blood pressure 120 mm[Hg] 120 mm[Hg] e CW1 ([facility]) Body mass index (BMI) [Ratio] 30.61 kg/m2 30.61 kg/m2 eCW1 ([facility]) Body height 63.5 [in_i] 63.5 [in_i] eCW1 ([facility]) Body weight 175.6 [lb_av] 175.6 [lb_av] eCW1 ([facility]) Diastolic blood pressure 66 mm[Hg] 66 mm[Hg] eCW1 ([facility]) Systolic blood pressure 116 mm[Hg] 116 mm[Hg] e CW1 ([facility]) Body mass index (BMI) [Ratio] 30.339 kg/m2 30.3 39 kg/m2 eCW1 ([facility]) Body height 63.5 [in_i] 63.5 [in_i] eCW1 ([facility]) Body weight 174 [lb_av] 174 [lb_av] eCW1 ([facility]) Diastolic blood pressure 66 mm[Hg] 66 mm[Hg] eCW1 ([facility]) Systolic blood pressure 114 mm[Hg] 114 mm[Hg] e CW1 ([facility]) Body mass index (BMI) [Ratio] 30.165 kg/m2 30.1 65 kg/m2 eCW1 ([facility]) Body height 63.5 [in_i] 63.5 [in_i] eCW1 ([facility]) Body weight 173 [lb_av] 173 [lb_av] eCW1 ([facility]) Body temperature 98.3 [degF] 98.3 [degF] MEDENT ([facility]) Diastolic blood pressure 58 mm[Hg] 58 mm[Hg] eCW1 ([facility]) Systolic blood pressure 108 mm[Hg] 108 mm[Hg] e CW1 ([facility]) Body temperature 98.2 [degF] 98.2 [degF] eCW1 ( [facility]) Respiratory rate 18 /min 18 /min eCW1 ([facility]) Heart rate 134 /min 134 /min eCW1 ([facility]) Body mass index (BMI) [Ratio] 28.07 kg/m2 28.07 kg/m2 eCW1 ([facility]) Body height 63.5 [in_us] 63.5 [in_us] eCW1 ([facility]) Body weight Measured 161 [lb_av] 161 [lb_av] eC W1 ([facility]) Patient Treatment Plan of Care Planned Activity Planned Date Details Description Data Source (s) 24 HR Amphetamine aspartate 3.75 MG / Am phetamine Sulfate 3.75 MG / Dextroamphetamine saccharate 3.75 MG / Dextroamphetamine Sulfate 3.75 MG Extended Release Oral Capsule [Adderall] 04/27/2019 12:00:00 AM EST eCW1 ([facility])
[2020-06-02] MEDS ORDERED: LACTATED RINGER'S 1000 ML IV STA (08:06)
--- NOTE | 2020-06-02 08:12 | HPEPDOC ---
Obstetrical History & Physical General Date of Admission Jun 02, 2020 at 07:02 Primary Care Physician: ESMER GONZALEZ CNM History of Present Illness Matilda is a 24 y/o at 39.0 weeks by 1st trimester ultrasound at 10.1wks on 11/13/19, LONG 06/08/2020. She started her care at [facility] in the first trimester. History significant for history of Preeclampsia with previous . This complicated by vaginal bleeding at 36 weeks, received 1 dose of Betamethasone, refused the 2nd dose. She presents today for an elective IOL. Reports active movement. Denies current vaginal bleeding, LOF, or regular contractions. Denies headache, visual changes, epigastric pain, nausea. Information Provided By: Patient Age: 24 : 3 Term: 2 Pre-term: 0 Abortions: 0 Livin Care Care: Good Care Dating Final EDC: Jun 08, 2020 Final EDC by: 1st trimester (US) LMP: October 03, 2019 1st Trimester Date: Nov 13, 2019 Weeks + Days: 10.1 EGA at Admission: 39.1 Antepartum Course Diagnos(e)s 3rd trimester bleeding, 1 dose of Betamethasone given, refused 2nd dose Height (inches): 63 Admission Weight (lbs.): 176.6 Past Medical History Past Obstetrical History #1: Past Obstetrical History: Primgravida Type of Delivery: Spontaneous Vaginal Del. Complications: No Past Obstetrical History #2: Past Obstetrical History: Multigravida Type of Delivery: Spontaneous Vaginal Del. Complications: Yes (Preeclampsia) [employer] History: No pertinent history Past Medical History Medical History Asthma, takes singular and inhaler ADD Vapes 2 pods of 25% nicotine per day Surgical History: Tooth extraction Family History Significant Family History: Diabetes (PGF, MGM, Father, Mother), Heart disease (MGM had an [place]), Hypertension (MGM, Father), Hyperlipidemia (Father), Other (PGM-alcoholism; MGM-kidney disease; Mother-migraines, anxiety) Social History Marital Status: Single Family situation: Spouse/partner home Psychosocial History: Att. deficit disorder * Smoker: current smoker (vapes 2 pods 25%nicotine per day) Alcohol: Denies Drugs: denies Imunizations Tdap status: current Influenza Status: declined Allergies Coded Allergies: amoxicillin (Verified Adverse Reaction, Mild, VOMITING, 06/02/20) Medications Scheduled PRN [Tylenol] , 1,000 MG PO for HEADACHE OR PAIN Miscellaneous Medications Loratadine (Loratadine) 10 Mg Tablet Montelukast Sodium (Montelukast Sodium) 10 Mg Tablet Physical Examination Physical Examination GENERAL: Alert and oriented times three. ABDOMEN: Gravid and non-tender to touch. FETUS: Is vertex (VTX) by sterile vaginal examination (SVE), fetus is vertex (VTX) by Shiraz. EFW 6.5-7lbs by [place]. HEART RATE: Regular rate and rhythm. LUNGS: Clear to auscultation (CTA) bilaterally EXTREMITIES: No edema. No clonus. Deep tendon reflexes (DTRs) + 2. Laboratory Data 24H LABS Laboratory Tests 2 06/02/20 07:09: Serology Scanned Report Hepatitis B Testing Pertinent Laboratoy Data Blood Type: O+ RBC Antibody Screen: Negative HIV: Negative Hepatitis B: Negative Hepatitis C: Negative Rapid Plasma Reagin: Nonreactive Rubella: Immune Varicella: Nonreactive Chlamydia/Gonorrhea: Negative Group B Streptococcus: Negative Steroid Therapy Steroid Therapy: Yes Date #1: May 16, 2020 Vaginal Examination Dilation: 3 cm Effacement: 70% Station: -2 Cervical Consistency: Soft Cervical Position: Posterior Presentation: Cephalic presentation Assessment Heart Rate (FHR): 130 Variability: Decreased Accelerations: Positive Decelerations: None Tocometer Contractions: Yes Frequency: irregular, other (3-10min.) Duration: greater than 60 seconds Strength: palpated as mild, resting tone palp/soft Multi-drug resistant Organism: No history of MDRO Assessment/Plan Assessment IUP at 39.1 weeks Elective IOL GBS Negative Category 1 FHT Plan Admit and orient to Labor and Delivery. Activity as tolerated. Diet: Regular. Group B Streptococcus (GBS) negative. Labs and intravenous (IV) per unit protocol. Counseled on Pitocin, cytotec, and induction of labor (IOL). Lactated Ringers (LR): Bolus 800 mL prior to epidural Anesthesia consult per patient's request. Anticipate normal spontaneous delivery (). C-S as appropriate. ESMER GONZALEZ CNM Jun 02, 2020 07:50
[2020-06-02] MEDS ORDERED: miSOPROStol 50MCG 1/2 TABLET PO ONE (08:15)
[2020-06-02 08:52] LABS: HEMATOCRIT 32.4 % (36.0-47.0); HEMOGLOBIN 10.6 g/dl (12.0-15.5); MEAN CORPUSCULAR HEMOGLOBIN 29.4 pg (27.0-33.0); MEAN CORPUSCULAR HGB CONC 32.7 g/dl (32.0-36.5); PLATELET COUNT, AUTOMATED 324 10^3/uL (150-450); WHITE BLOOD COUNT 15.6 10^3/uL (4.0-10.0)
[2020-06-02] MEDS ORDERED: FENTANYL 2MCG/ML ROPIVACAINE 0.2% IN 0.9% NACL 100ML IVBAG As Ordered ONE (10:49)
[2020-06-02] MEDS ORDERED: NALOXONE INJ 0.4MG/1ML VIAL (J2310 PER 1MG) IV PRN (11:45)
[2020-06-02] MEDS ORDERED: REFRIGERATOR IV KEYS XX PRN (11:45)
[2020-06-02] MEDS ORDERED: LACTATED RINGER'S 1000 ML IV PRN (11:45)
[2020-06-02] MEDS ORDERED: ePHEDrine SULFATE 25 MG/5 ML(5MG/ML) SYRINGE IV PRN (11:45)
[2020-06-02] MEDS ORDERED: FENTANYL/ROPIVACAINE/NACL BAG 100 ML EPIDURAL SCH (11:45)
[2020-06-02] MEDS ORDERED: EPIDURAL COMMENT XX SCH (11:45)
[2020-06-02] MEDS ORDERED: ONDANSETRON 4MG/2ML VIAL IV PRN (11:45)
[2020-06-02] MEDS ORDERED: diphenhydrAMINE 50MG/ML VIAL (J1200) IV PRN (11:45)
[2020-06-02] MEDS ORDERED: EPIDURAL/PCA KEYS XX PRN (11:45)
[2020-06-02] MEDS ORDERED: LR 1,000 ML IV SCH (12:41)
[2020-06-02] MEDS ORDERED: OXYTOCIN DRIP 30 UNITS in IV 1 EA IV SCH ×2 (12:45→13:48)
--- NOTE | 2020-06-02 12:55 | IPNPDOC ---
Obstetrical Progress Note Date of Service Jun 02, 2020 Subjective Matilda is comfortable with her epidural. Reports SROM, moderate amount of clear fluid noted on bed. Objective Vital Signs Date Time Temp Pulse Resp B/P (MAP) Pulse Ox O2 Delivery O2 Flow Rate FiO2 06/02/20 09:05 100 114/73 (87) 06/02/20 08:34 18 06/02/20 07:54 98.1 Assessment Heart Rate (FHR): 130 Variability: Moderate Accelerations: Positive Decelerations: Early Heart Rate Tracing: Category I Tocometer Contractions: Yes Frequency: other (3-6 min.) Duration: greater than 60 seconds Strength: palpated as moderate, resting tone palp/soft Sterile Vaginal Examination Dilation: 6 cm Effacement (%): 100% Station: 0 Cervical Consistency: Soft Cervical Position: Anterior Postion/Presentation: Cephalic presentation Assessment and Plan Age: 24 : 3 Term: 2 Pre-term: 0 Abortions: 0 Livin EGA at Admission: 39.1 Status: Reassuring Group B Streptococcus: Negative Anticipate: Vaginal Delivery Additional Comments Plan to start Pitocin. ESMER GONZALEZ CNM Jun 02, 2020 12:55
--- NOTE | 2020-06-02 13:59 | DNPDOC ---
[facility] Delivery Note Delivery Note DATE OF DELIVERY:06/02/20 @ 1325 PREDELIVERY DIAGNOSIS: 39-1/7 weeks' gestation and elective IOL. POST DELIVERY DIAGNOSIS: Delivered. PROCEDURE: Spontaneous vaginal delivery. BARN MANAGER: Esmer Hammond CNM, ALFONSO and MOLINA Vo ANESTHESIA: Epidural. ESTIMATED BLOOD LOSS: 150 mL. FINDINGS: 6 pound 8 ounce, 2940g Male infant, Score 8/9, loose nuchal cord times 1, partial circumvallate placenta. DELIVERY SUMMARY: Matilda is a 24-year-old 3 now para 3-0-0-3 who was admitted to labor and delivery for an elective IOL. Cytotec x1, then active labor began. Epidural received for pain management. SROM for clear fluid at 1245. Full dilation reached at 1316. Pushed well to deliver head OA with restitution to ROT, loose nuchal cord reduced on perineum. Anterior shoulder and corpus followed with maternal pushing efforts. Infant placed skin to skin on maternal abdomen, vigorous with stimulation. Cord clamped x2 when pulsations ceased, and cut by FOB. Cord blood collected. Intact placenta delivered spontaneously, avila mechanism at 1329. Fundal massage and IV Pitocin bolus, fundus firm at umbilicus, small flow. Vagina, perineum, and cervix examined and noted to be intact. Sponges and instruments counted and correct. Parents plan to name him "Marquez" and plan to formula feed . Mother and infant left in stable condition. ESMER HAMMOND CNM Jun 02, 2020 13:59
[2020-06-02] MEDS ORDERED: RHOGAM 300 MCG (1500 IU) INJ (J2790) IM SCH (14:00)
[2020-06-02] MEDS ORDERED: DOCUSATE SODIUM 100MG CAPSULE PO PRN (14:00)
[2020-06-02] MEDS ORDERED: BENZOCAINE 20% HEMORRHOIDAL OINTMENT 28GM TUBE TOP PRN (14:00)
[2020-06-02] MEDS ORDERED: MEASLES,MUMPS,RUBELLA VACCINE INJ (MMR-II) (90707) SC SCH (14:00)
[2020-06-02] MEDS ORDERED: ACETAMINOPHEN TAB 650MG DOSE (2X325MG) PO PRN (14:00)
[2020-06-02] MEDS ORDERED: IBUPROFEN 600MG TAB PO PRN (14:00)
[2020-06-02] MEDS ORDERED: METHYLERGONOVINE MALEATE 0.2 MG TAB PO PRN (14:00)
[2020-06-02] MEDS: IBUPROFEN 800 MG TAB PO PRN (16:31)
[2020-06-02] MEDS: ACETAMINOPHEN 500 MG TAB PO PRN (22:17)
[2020-06-03] MEDS: IBUPROFEN 800 MG TAB PO PRN (04:09)
[2020-06-03 06:00] VITALS: BP 128/60
[2020-06-03] MEDS ORDERED: ACET-683 PO (07:01)
[2020-06-03] MEDS ORDERED: IBUP80TA PO (07:01)
--- NOTE | 2020-06-03 07:11 | DS.PDOC ---
Discharge Summary General Date of Admission Jun 02, 2020 at 07:02 Date of Discharge 06/03/20 Attending Physician: ESMER GONZALEZ CNM Discharge Summary PROCEDURES PERFORMED DURING STAY: None ADMITTING DIAGNOSES: 1. IUP at 39.1 weeks gestation. 2. elective induction of labor DISCHARGE DIAGNOSES: 1. vaginal delivery. COMPLICATIONS/CHIEF COMPLAINT: Induction. HISTORY OF PRESENT ILLNESS: Matilda is a 24-year-old female who presented for an induction of labor at 39+ weeks gestation. She received 1 dose of Cytotec and less than 0.5 cc of IV Pitocin for induction. She requested an epidural for pain management. The patient had an uncomplicated vaginal delivery over an intact perineum/vagina of a living male. She does report some slight back pain today with left sided hip pain. A k-pad was ordered this morning and she took a dose of Motrin to help with discomfort. She desires to go home. Patient continues to bottle feed . HOSPITAL COURSE: uncomplicated. DISCHARGE MEDICATIONS: Please see below. ALLERGIES: Please see below. PHYSICAL EXAMINATION ON DISCHARGE: VITAL SIGNS: Please see below. GENERAL: No apparent distress. RESPIRATORY EXAMINATION: regular rate ABDOMINAL EXAMINATION: fundus firm at umbilicus with no tenderness EXTREMITIES: generalized edema, no pitting, no varicosities SKIN: warm, dry intact; no rashes or lesions noted. NEUROLOGICAL EXAMINATION: Alert and oriented. Speech is clear. PSYCHIATRIC EXAMINATION: Mood is cheerful. Affect normal. LABORATORY DATA: Please see below. ACTIVITY: As tolerated. Pelvic rest. DIET: regular DISCHARGE INSTRUCTIONS: 1. Patient may be discharged today. 2. Reviewed discharge instructions: pain management, pelvic rest, signs of infection, signs of endometritis, DVT/PE, depression, hemorrhage. 3. Patient to receive Depo-Provera today for contraception before leaving hospital. DISCHARGE CONDITION: Stable. Vital Signs/I&Os Vital Signs Date Time Temp Pulse Resp B/P (MAP) Pulse Ox O2 Delivery O2 Flow Rate FiO2 06/03/20 06:00 98.1 74 18 128/60 (82) 97 Room Air I&O- Last 24 Hours up to 6 AM 06/03/20 05:59 Intake Total 1040 ml Output Total 400 ml Balance 640 ml Laboratory Data Labs 24H Laboratory Tests 2 06/02/20 07:09: Serology Scanned Report Hepatitis B Testing 06/02/20 08:31: Nucleated Red Blood Cells % (auto) 0.0, Syphilis Serology NONREACTIVE CBC/BMP Laboratory Tests 06/02/20 08:31 Discharge Medications Scheduled PRN Acetaminophen (Acetaminophen) 500 Mg Tablet, 1,000 MG PO Q8HP PRN for PAIN Ibuprofen (Ibuprofen) 800 Mg Tablet, 800 MG PO Q8HP PRN for PAIN Allergies Coded Allergies: amoxicillin (Verified Adverse Reaction, Mild, VOMITING, 06/02/20) ESMER GONZALEZ CNM Jun 03, 2020 07:11
[2020-06-03] MEDS ORDERED: PRENATAL VITAMINS CHEWABLE TABLET PO SCH (09:00)
[2020-06-03] MEDS ORDERED: medroxyPROGESTERone ACET IM SUSP 150 MG/ML VIAL (J1050) IM ONE (09:00)
[2020-06-03] MEDS: ACETAMINOPHEN 500 MG TAB PO PRN (10:21)
== END 2020-06-03 15:30 | disposition home or self-care (01) | DRG 560 ==
LOC: M LDI 07:02 → M OBS 15:57
PROVIDERS: ADMIT Obstetrics & Gynecology; ATTEND Advanced Practice Midwife
PROC: 10E0XZZ Delivery of Products of Conception, External Approach (ICD-10-PCS; principal; 2020-06-02)
PROC: 3E0P7GC Introduction of Other Therapeutic Substance into Female Reproductive, Via Natural or Artificial Opening (ICD-10-PCS; 2020-06-02)
DX: O99.52 Diseases of the respiratory system complicating childbirth (principal); F17.290 Nicotine dependence, other tobacco product, uncomplicated; J45.909 Unspecified asthma, uncomplicated; Z3A.39 39 weeks gestation of pregnancy; O69.81X0 Labor and delivery complicated by cord around neck, without compression, not applicable or unspecified; Z37.0 Single live birth; O43.113 Circumvallate placenta, third trimester; O99.334 Smoking (tobacco) complicating childbirth

== ENCOUNTER → 2022-09-27 | Outpatient (CLI) | payer OTHER ==
[~2022-09-27] MED LIST changes: +ACET-683 PO; +IBUP80TA PO; -MONT10TA10; +MONT10TA97
[2022-09-27 13:36] LABS: BASO # 0.1 10^3/uL (0.0-0.2); BASO % 0.6 % (0.0-1.0); EOS # 0.3 10^3/uL (0.0-0.5); HEMATOCRIT 41.5 % (36.0-47.0); HEMOGLOBIN 13.6 g/dl (12.0-15.5); LYMPH # 3.2 10^3/uL (1.5-5.0); LYMPH % 25.1 % (24.0-44.0); MEAN CORPUSCULAR HEMOGLOBIN 29.8 pg (27.0-33.0); MEAN CORPUSCULAR HGB CONC 32.8 g/dl (32.0-36.5); MONO # 0.7 10^3/uL (0.0-0.8); MONO % 5.4 % (2.0-8.0); NEUTROPHILS # 8.4 10^3/uL (1.5-8.5); NEUTROPHILS % 66.4 % (36.0-66.0); PLATELET COUNT, AUTOMATED 380 10^3/uL (150-450); RED BLOOD COUNT 4.56 10^6/uL (4.00-5.40); WHITE BLOOD COUNT 12.6 10^3/uL (4.0-10.0)
[2022-09-27 14:03] LABS: ALBUMIN 3.9 G/DL (3.2-5.2); ALKALINE PHOSPHATASE 127 U/L (46-116); ALT/SGPT < 9 U/L (7.0-40); AST/SGOT 17 U/L (<34); BILIRUBIN,TOTAL 0.4 MG/DL (0.3-1.2); BLOOD UREA NITROGEN 13 MG/DL (9-23); CALCIUM LEVEL 9.2 MG/DL (8.5-10.1); CARBON DIOXIDE LEVEL 26 MMOL/L (20-31); CHLORIDE LEVEL 107 MMOL/L (98-107); CREATININE FOR GFR 0.85 MG/DL (0.55-1.30); GLOMERULAR FILTRATION RATE > 60.0 (>60); GLUCOSE, FASTING 103 MG/DL (60-100); POTASSIUM SERUM 3.9 MMOL/L (3.5-5.1); SODIUM LEVEL 140 MMOL/L (136-145); TOTAL PROTEIN 7.1 G/DL (5.7-8.2)
== END ==
LOC: M PLALAB 10:17
PROVIDERS: ATTEND Registered Nurse
DX: Z00.00 Encounter for general adult medical examination without abnormal findings (principal)

== ENCOUNTER → 2022-10-05 | Outpatient (CLI) | payer OTHER | LOC: M WHC 08:53 | PROVIDERS: ATTEND Physician Assistant Medical | DX: N63.12 Unspecified lump in the right breast, upper inner quadrant (principal) ==

== ENCOUNTER → 2022-11-26 | Outpatient (REF) | payer OTHER | LOC: M SFHCDERM 17:17 | PROVIDERS: ATTEND Nurse Practitioner Family | DX: D22.39 Melanocytic nevi of other parts of face (principal) ==

== ENCOUNTER → 2024-08-10 | Outpatient (CLI) | payer OTHER ==
[~2024-08-10] MED LIST changes: +LORA-1041; -LORA-674; +ONDA-282 PO; -ONDA4TAB6 PO
== END ==
LOC: M RAD 09:45
PROVIDERS: ATTEND Family Medicine
DX: M25.511 Pain in right shoulder (principal)

== ENCOUNTER → 2025-04-27 | Outpatient (REF) | payer OTHER | LOC: M LAB REF 17:36 | PROVIDERS: ATTEND Physician Assistant Medical | DX: J06.9 Acute upper respiratory infection, unspecified (principal) ==